=== PATIENT | female | born 1965 | race Caucasian/White ===

== ENCOUNTER 2017-11-16 13:48 | Emergency (ER) | payer BC, SELFPAY ==
[2017-11-16 13:48] VITALS: BP 164/76; PULSE 97; RESP 18; TEMP 37.4; O2SAT 95; BMI 44.2
--- NOTE | 2017-11-16 14:22 | CT_ITS ---
STUDY: CT ABDOMEN AND PELVIS WITHOUT CONTRAST REASON FOR EXAM: Female, 52 years old. Lower abdominal pain. Nausea. RADIATION DOSAGE (If Supplied By Facility): CTDIvol = ( 23.93 ) mGy, DLP = ( 1249.64 ) mGycm TECHNIQUE: Transaxial images were obtained from the dome of the diaphragm to the symphysis pubis without oral contrast, and without intravenous contrast. Sagittal and coronal images were reconstructed. Individualized dose optimization techniques were used for this CT. COMPARISON: None. FINDINGS: The visualized lung bases are unremarkable. The visualized portions of the heart are within normal limits. There is decreased attenuation of the liver consistent with steatosis. There are surgical clips in the gallbladder fossa consistent with a prior cholecystectomy. There are multiple benign calcified granulomata of the spleen. Normal pancreas. There is a small, circumscribed, smooth, low attenuation left adrenal mass, consistent with an adrenal adenoma. This measures 1.6 cm. Normal right adrenal gland. Normal right kidney. Normal left kidney. Normal visualized stomach. Normal small intestine. There is diverticulosis, with thickening of the colon wall, and pericolonic inflammation changes consistent with acute diverticulitis. Increased markings are seen in the surrounding sigmoid fat. 2 small air collections are seen within the inflammatory process. The appendix is visualized and appears normal. Normal abdominal aorta. Normal inferior vena cava. Normal retroperitoneum. Normal urinary bladder. There is absence of the uterus consistent with a prior hysterectomy. Minimal amount of free fluid is seen in the cul-de-sac. Normal abdominal wall. Normal osseous structures. CT/Abdomen/Pelvis without Cont IMPRESSION: Findings in keeping with acute sigmoid diverticulitis with a localized inflammatory response in the sigmoid mesentery. 2 small air collections are seen contained within the inflammatory process. Electronically Signed: Toni Khan MD at 15:34 EDT Tel [phone], Service support ,
--- NOTE | 2017-11-16 14:25 | ED.DCSUM_ITS ---
- ER Visit Summary Date of Service: 11/16/17 Chief Complaint: Abdominal pain History of Present Illness: The patient is a 52 F with history of diverticulitis who presents for abdominal pain since last night. 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 It is continuous and sharp, diffuse in nature. Worse with movement and mildly improved with gentle rubbing of the abdomen. Patient has associated nausea and multiple episodes of small quantities of mucus he stool. No formed stool or blood per rectum. No urinary symptoms. Patient has had a fever up to 101.9 at home. 3 of cholecystectomy and hysterectomy. Physical Examination: Vital signs: afebrile, hemodynamically stable, no hypoxia on room air General: well nourished, well developed, in no distress appears uncomfortable Skin: warm, dry, edematous rash on right medial arm over the elbow joint with 2 ovoid scabs, no pallor HEENT: normocephalic and atraumatic; PERRL, EOMI, moist mucous membranes Cardiovascular: Tachycardic rate and rhythm without murmurs, no peripheral edema , 2+ pulses all distal extremities Respiratory: No increased work of breathing, lungs are clear to auscultation bilaterally, no rales, rhonchi or wheezing Abdominal: Abdomen is soft, diffusely tender to light palpation with normoactive bowel sounds, no guarding or rebound, no masses MSK: Moves all extremities, no deformities, normal strength Neuro: Awake and alert, oriented ?4. No facial droop, sensation and motor function intact and symmetric Test Results: Abnormal Lab Results 11/16/17 11/16/17 11/16/17 14:30 14:30 14:30 WBC 19.8 H RBC 4.99 Hgb 15.1 H Hct 44.9 MCV 90.0 MCH 30.3 MCHC 33.6 RDW 13.5 RDW Differential 44.5 H Plt Count 214 MPV 11.0 Immature Gran % (Auto) 0.300 Neut % (Auto) 87.2 H Lymph % (Auto) 6.8 L [place] % (Auto) 5.4 Eos % (Auto) 0.2 Baso % (Auto) 0.1 Absolute Neuts (auto) 17.3 H Absolute Lymphs (auto) 1.34 Total Counted Not Reportable Sodium 132 L Potassium 3.8 Chloride 99 Carbon Dioxide 26.0 Anion Gap 7 BUN 9 Creatinine 0.99 Estim Creat Clear Calc 56.24 Est GFR (MDRD) Af Amer 77 Est GFR (MDRD) Non-Af 63 BUN/Creatinine Ratio 9.1 L Glucose 196 H Lactic Acid 1.2 Calcium 8.4 L Total Bilirubin 2.30 H AST 90 H ALT 99 H Alkaline Phosphatase 65 Total Protein 7.3 Albumin 3.2 Globulin 4.1 Albumin/Globulin Ratio 0.8 L Lipase 78 Urine Color Urine Clarity Urine pH Ur Specific [place] Urine Protein Urine Glucose (UA) Urine Ketones Urine Occult Blood Urine Nitrite Urine Bilirubin Urine Urobilinogen Ur Leukocyte Esterase Urine RBC Urine WBC Ur Squamous Epith Cells Urine Bacteria Urine Mucus 11/16/17 15:15 WBC RBC Hgb Hct MCV MCH MCHC RDW RDW Differential Plt Count MPV Immature Gran % (Auto) Neut % (Auto) Lymph % (Auto) [place] % (Auto) Eos % (Auto) Baso % (Auto) Absolute Neuts (auto) Absolute Lymphs (auto) Total Counted Sodium Potassium Chloride Carbon Dioxide Anion Gap BUN Creatinine Estim Creat Clear Calc Est GFR (MDRD) Af Amer Est GFR (MDRD) Non-Af BUN/Creatinine Ratio Glucose Lactic Acid Calcium Total Bilirubin AST ALT Alkaline Phosphatase Total Protein Albumin Globulin Albumin/Globulin Ratio Lipase Urine Color Yellow Urine Clarity Clear Urine pH 6.0 Ur Specific [place] 1.010 Urine Protein Negative Urine Glucose (UA) Normal Urine Ketones 5 H Urine Occult Blood 25 H Urine Nitrite Negative Urine Bilirubin 1 H Urine Urobilinogen 1 H Ur Leukocyte Esterase 25 H Urine RBC 0 SEEN Urine WBC 0-5 SEEN Ur Squamous Epith Cells 0-5 SEEN Urine Bacteria RARE Urine Mucus 0 SEEN Clinical Impression(s) from Imaging Studies Abdomen/Pelvis CT 11/16/17 14:22 IMPRESSION: Findings in keeping with acute sigmoid diverticulitis with a localized inflammatory response in the sigmoid mesentery. 2 small air collections are seen contained within the inflammatory process. Electronically Signed: Toni Khan MD at 15:34 EDT Tel [phone], Service support , Emergency Department Course and Treatment: Patient was given IV fluids, Zofran and morphine for symptomatic control. Labs showed leukocytosis, normal lactate , and mild transaminitis. CT scan was performed that showed sigmoid diverticulitis without any abscess collection or perforation noted. Patient has a history of diverticulitis and felt comfortable with outpatient therapy. She was placed on Cipro and metronidazole, with zofran and small prescription of [place] to help with symptomatic relief. Return precautions given. Patient was discharged home. Treatment Plan: [] Disposition: [] Impression: Acute sigmoid diverticulitis This note was generated with [employer] dictation software. It may contain incorrect words, spelling, and punctuation that were not noted in review of the chart prior to signing ED Disposition - Plan for ED Patient: Disposition: Home or Assisted Living Chief Complaint: Abd Pain Instructions: ED Diverticulitis Prescriptions: Ondansetron [Zofran Odt] 4 mg PO Q8H PRN PRN #20 tab PRN Reason: Nausea Hydrocodone/Acetaminophen [[place] 5-325 Tablet] 1 ea PO 4X/DAY PRN PRN 5 Days # 15 tab PRN Reason: Pain Metronidazole [Flagyl] 500 mg PO Q8H #21 tab Ciprofloxacin [Cipro] 500 mg PO BID #14 tab Referrals: Demarcus Vasques DO [COURTESY STAFF PHYSICIAN] - 3-5 Days if not improving Additional Instructions: Call your antibiotics for the full 7 days, even if you feel better before they are complete. You may use Zofran for nausea, especially if the medications upset your stomach. Use the [place] for severe pain. If you are unable to tolerate the antibiotics at home, have any worsening of your condition after 2 days of antibiotics, or had any concerns at all, return to the emergency department for another evaluation immediately.
[2017-11-16] MEDS: 0.9% Normal Saline 1,000 ML 1000 ML IV (14:33)
[2017-11-16] MEDS: Ondansetron 4 MG/2 ML Vial IV (14:38)
[2017-11-16] MEDS: Morphine 4 MG/ML Syringe IV (14:38)
[2017-11-16 14:40] VITALS: BP 156/83; PULSE 90
[2017-11-16 14:46] LABS: Absolute Lymphocyte Count 1.34 X10^3/ul (0.83-4.51); Absolute Neutrophil Count 17.3 X10^3/uL (2.0-7.7); Basophil# 0.01 X10^3/uL; Basophil% 0.1 % (0-1); Eosinophil# 0.03 X10^3/uL; Eosinophils% 0.2 % (0-5); Hematocrit 44.9 % (37-47); Hemoglobin 15.1 g/dl (12.0-15.0); Lymphocyte # 1.34 X10^3/ul (4.0); Lymphocyte % 6.8 % (19-41); Mean Corp Hgb Conc 33.6 g/gl (32-36); Mean Corpuscular Hgb 30.3 pg (27.0-32.0); Monocyte# 1.07 X10^3/uL; Monocyte% 5.4 % (0-10); Neutrophil # 17.26 X10^3/uL (2.7-7.7); Neutrophil % 87.2 % (47-70); POSITIVE COUNT NO; POSITIVE DIFFERENTIAL NO; POSITIVE MORPHOLOGY NO; Platelet Count 214 K/mm3 (150-450); RBC Distribution Width CV 13.5 % (11.6-14.6); RBC Distribution Width SD 44.5 fl (35.1-43.9); Red Blood Count 4.99 M/mm3 (4.2-5.4); White Blood Count 19.8 K/mm3 (4.4-11.0)
[2017-11-16 15:05] LABS: Lactic Acid 1.2 mmol/L (0.4-2.0)
[2017-11-16 15:06] LABS: ALB/GLOB Ratio 0.8 RATIO (0.9-2.4); AST(SGOT) 90 U/L (15-37); Alanine Aminotransfer ALT/SGPT 99 U/L (13-56); Albumin, Serum 3.2 g/dL (3.2-5.0); Alkaline Phosphatase 65 U/L (45-117); Anion Gap 7 (5-15); BUN 9 mg/dL (7-18); BUN/Creat Ratio 9.1 RATIO (10-20); Calcium,Total 8.4 mg/dL (8.5-10.1); Chloride 99 mmol/L (98-107); Creatinine, Serum 0.99 mg/dL (0.55-1.02); EST Glomerular Filtration Rate 63 mL/min (>60); Est Glom Filt Rate - Afr Amer 77 mL/min (>60); Estimated Creatinine Clearance 56.24 ml/min; Globulin 4.1 g/dL (2.2-4.2); Glucose 196 mg/dL (74-106); Lipase 78 U/L (73-393); Potassium 3.8 mmol/L (3.5-5.1); Protein, Total 7.3 g/dL (6.4-8.2); Sodium Level 132 mmol/L (136-145)
[2017-11-16 15:26] LABS: Mucous, Urine 0 SEEN /hpf (<or=2+); Red Blood Cells-Urine 0 SEEN /hpf (0-5)
[2017-11-16 15:41] LABS: Color, Urine Yellow (Yellow); Glucose, Dipstick Normal (Normal); Ketone-Dipstick 5 mg/dl (Negative); Leukocyte Esterase-Dipstick 25 /ul (Negative); Nitrite-Dipstick Negative (Negative); Occult Blood-Urine 25 /ul (Negative); Protein-Dipstick Negative (Negative); Urine Clarity Clear (Clear); Urine Urobilinogen 1 mg/dl (Normal)
[2017-11-16 15:56] LABS: Urine Bilirubin Dipstick 1 mg/dL (Negative)
[2017-11-16 15:59] LABS: Bacteria RARE /hpf (None Seen); Squamous Epithelial Cells - UA 0-5 SEEN /hpf (5-10); White Blood Cells 0-5 SEEN /hpf (0-5)
--- NOTE | 2017-11-16 16:19 | DCINST.ED_ITS ---
ED Disposition - Plan for ED Patient: Disposition: Home or Assisted Living Chief Complaint: Abd Pain Instructions: ED Diverticulitis Prescriptions: Ondansetron [Zofran Odt] 4 mg PO Q8H PRN PRN #20 tab PRN Reason: Nausea Hydrocodone/Acetaminophen [[place] 5-325 Tablet] 1 ea PO 4X/DAY PRN PRN 5 Days # 15 tab PRN Reason: Pain Metronidazole [Flagyl] 500 mg PO Q8H #21 tab Ciprofloxacin [Cipro] 500 mg PO BID #14 tab Referrals: Demarcus Vasques DO [COURTESY STAFF PHYSICIAN] - 3-5 Days if not improving Additional Instructions: Call your antibiotics for the full 7 days, even if you feel better before they are complete. You may use Zofran for nausea, especially if the medications upset your stomach. Use the [place] for severe pain. If you are unable to tolerate the antibiotics at home, have any worsening of your condition after 2 days of antibiotics, or had any concerns at all, return to the emergency department for another evaluation immediately.
[2017-11-16 16:30] VITALS: BP 137/64; PULSE 84; RESP 18; O2SAT 94
[2017-11-16] MEDS: HYDROcodone Bitartrate/Apap 5/325 Tablet PO (16:32)
== END 2017-11-16 16:38 | disposition home or self-care (01) ==
PROVIDERS: Emergency Provider Emergency Medicine
DX: K57.32 Diverticulitis of large intestine without perforation or abscess without bleeding (principal); Z90.49 Acquired absence of other specified parts of digestive tract; Z90.710 Acquired absence of both cervix and uterus; R21 Rash and other nonspecific skin eruption; E66.9 Obesity, unspecified; Z72.0 Tobacco use
CPT/HCPCS: 74176; 80053; 81001; 83605; 83690; 85025; 87086; 87088; 96361; 96374; 96375; 99285; J7030; A4216; J2405

== ENCOUNTER → 2019-08-23 10:36 | Outpatient (CLI) | payer SELFPAY ==
[2019-08-23 10:35] VITALS: BMI 44.2
--- NOTE | 2019-08-23 10:38 | RAD_ITS ---
STUDY: X-RAY - SACRUM/COCCYX REASON FOR EXAM: Female, 53 years old. Fell, pain TECHNIQUE: 3 view(s) of the sacrum and coccyx were obtained. COMPARISON: None. FINDINGS: There is degenerative arthrosis of the bilateral sacroiliac joints. Normal visualized sacral ala and fused sacral bodies. Normal sacrococcygeal junction with a normal angulation. Anterior subluxation of the distal coccygeal segment. The presacral soft tissue structures are unremarkable. RAD/Sacrum-Coccyx min 2 Views IMPRESSION: Degenerative changes. Anterior subluxation of the distal coccygeal segment. Electronically Signed: Toni Khan, at 11:39 EST , Service support ,
== END ==
PROVIDERS: Referring Provider Physician Assistant; Visit Provider Physician Assistant
DX: R52 Pain, unspecified (principal); W19.XXXA Unspecified fall, initial encounter
CPT/HCPCS: 72220

== ENCOUNTER → 2020-12-22 14:44 | Outpatient (CLI) | payer MEDICAID, SELFPAY ==
[2019-08-23 10:35] VITALS: BMI 44.2
[2020-12-22 15:54] LABS: AST(SGOT) 17 U/L (15-37); Alanine Aminotransfer ALT/SGPT 41 U/L (13-56); Cholesterol 134 mg/dL (200); High Density Lipoprotein 49 mg/dL; Triglycerides 94 mg/dL; Very Low Density Lipoprotein 19 mg/dL (5-40)
== END ==
PROVIDERS: PCP Preventive Medicine Occupational Medicine; Referring Provider Preventive Medicine Occupational Medicine; Visit Provider Preventive Medicine Occupational Medicine
DX: E78.5 Hyperlipidemia, unspecified (principal)
CPT/HCPCS: 36415; 80061; 84450; 84460

== ENCOUNTER 2021-01-25 02:38 | Emergency (ER) | payer MEDICAID, SELFPAY ==
[2019-08-23 10:35] VITALS: BMI 44.2
[2021-01-25 02:40] VITALS: BP 138/72; PULSE 74; RESP 16; TEMP 36.6; O2SAT 99; BMI 42.0
[2021-01-25 02:44] VITALS: O2SAT 99
--- NOTE | 2021-01-25 02:44 | RAD_ITS ---
STUDY: X-RAY CHEST REASON FOR EXAM: Female, 55 years old. chest pain TECHNIQUE: Single AP portable view of the chest. COMPARISON: None. FINDINGS: The lungs are clear and expanded. There is no demonstrated pleural abnormality. Normal size heart. Normal mediastinum and cristina. Normal visualized pulmonary arteries. Normal visualized aortic arch and descending thoracic aorta. Normal visualized thoracic spine. There is degenerative osteoarthritis of the bilateral shoulders. There is no demonstrated abnormality of the visualized soft tissue structures of the upper abdomen. RAD/Chest 1 View (Portable) IMPRESSION: No acute cardiopulmonary disease. Electronically Signed: Oxana Lambert MD at 3:19 EDT , Service support ,
--- NOTE | 2021-01-25 02:44 | EKG12_ITS ---
Test Reason : CHEST PAIN Blood Pressure : / mmHG Vent. Rate : 071 BPM Atrial Rate : 071 BPM P-R Int : 164 ms QRS Dur : 092 ms QT Int : 418 ms P-R-T Axes : -11 014 184 degrees QTc Int : 454 ms Normal sinus rhythm ST & T wave abnormality, consider inferior ischemia ST & T wave abnormality, consider anterolateral ischemia Abnormal ECG Confirmed by HUMBLE ZHAO, NIURKA ([id number]), editorial project manager RUKHSANA CORNELIUS ([id number]) on 01/26/2021 2:26:24 PM Referred By: AVRIL Confirmed By:NIURKA KATE MD
--- NOTE | 2021-01-25 02:45 | EDS_ITS ---
HPI History of Present Illness Chief Complaint: Palpitations Informant: patient Onset/Context/Timing Onset: Today Activity at onset: sudden and sleep Timing: Intermittent Current Severity: Gone Maximum Severity: Mild Worsened By: Nothing Relieved By: Nothing Narrative Narrative: Middle-aged female history of prior A. fib currently not on blood thinners. Had a prior cardiac catheterization in the last 4 months and states that she had 20% blockage. No stents. She is currently on no blood thinner. She does have a history also of diabetes. States she has been feeling well. Tonight she woke up about 2 AM from sleep with palpitations. Really no significant chest pain. No shortness of breath. No diaphoresis. No nausea. Prior Similar Symptoms: Yes Recent Illness/Hospitalization: No CVD Risk Factors: Positive for Diabetes, Hypercholesterolemia and Smoking PE Risk Factors: Negative for Recent Travel/Surgery, Recent Immobilization, Prior DVT or PE, Cancer and OCP + Smoking + >/=35 TAD Risk Factors: Negative for Marfan's Syndrome [facility] Medical History (Updated 01/25/21 @ 03:[address] Live Zamarripa MD) Asthma Cancer Diverticulitis Hypertension Home Medications albuterol sulfate 1 puff INHALATION Q6H PRN PRN 01/25/21 [History Last Taken Unknown] atorvastatin 20 mg PO DAILY 01/25/21 [History Last Taken Unknown] diltiazem HCl 240 mg PO DAILY 01/25/21 [History Last Taken Unknown] dulaglutide [Trulicity] 1.5 mg SUBCUT QWEEK 01/25/21 [History Last Taken Unknown] metformin 200 mg PO DAILY 01/25/21 [History Last Taken Unknown] Allergy/AdvReac Type Severity Reaction Status Date / Time No Known Allergies Allergy Verified 08/23/19 10:51 Surgical History History of cataract surgery History of cholecystectomy History of hysterectomy Social History Smoking Status: Current every day smoker tobacco type: cigarettes alcohol intake: current alcohol intake frequency: a few times a week ROS ROS ED ROS Narrative Denies recent illness. Review of Systems ROS Unobtainable: Denies due to encephalopathy Constitutional Constitutional ED: Denies chills or fever(s) Eyes Eyes: Denies none ENT ENT ED: Denies ear pain or sore throat Cardiovascular Cardiovascular: Reports as per HPI, palpitations and racing heartbeat; Denies chest pain Respiratory/Chest Respiratory/Chest: Denies cough or dyspnea Gastrointestinal Gastrointestinal: Denies abdominal pain, diarrhea, nausea or vomiting Genitourinary Genitourinary ED: Denies dysuria or hematuria Musculoskeletal Musculoskeletal: Denies arthralgias or myalgias Integumentary Denies rash Neurologic Neurologic: Denies headache(s) Psychiatric Psychiatric: Denies depression Endocrine Endocrinology: Denies polyuria Hematologic/Lymphatic Hematologic/Lymphatic: Denies easy bruising Allergic/Immunologic Allergic/Immunologic ED: Denies urticaria EXAM Physical Exam Narrative Exam Narrative: Middle-aged female no acute distress. Current heart rate is in the 70s. No complaints. HEENT exam unremarkable. Neck nontender. No lymphadenopathy. No thyromegaly. Lungs clear to auscultation bilaterally. Heart regular rate and rhythm no murmur rate about 74. Abdomen soft nontender normal bowel sounds no peritoneal signs. Patient moving all 4 extremities. Calves nontender without edema or cords. Equal symmetrical radial pulses. 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 Neurologically awake and alert with no focal motor deficits. Currently patient is symptom-free. Const Vital Signs: 01/25/21 02:40 01/25/21 02:42 01/25/21 02:44 Temperature 98 F Temperature Source Temporal Pulse Rate 74 Respiratory Rate 16 Respiratory Pattern Normal Blood Pressure 138/72 H Blood Pressure Mean 94 Pulse Ox 99 99 Oxygen Delivery Method Room Air Room Air Positive well nourished and well developed General Appearance ED: well developed and NAD HEENT Reports moist mucous membranes normocephalic and atraumatic; Negative for trauma or tenderness Eyes PERRL and EOMs intact bilaterally General Eye ED: Negative for pale conjunctiva Neck no lymphadenopathy, supple and no JVD General: Negative for tenderness Chest Wall inspection of chest normal and palpation of chest normal Chest: Negative for tenderness Resp normal respiratory effort and clear to auscultation bilaterally Effort and Inspection: respiratory distress Auscultation: Negative for rales, rhonchi or wheezes Cardio regular rate, regular rhythm, S1 normal heart sound, S2 normal heart sound and no murmurs Rate: Negative for bradycardia or tachycardic GI normal to inspection, nondistended, normoactive bowel sounds, soft to palpation, non-tender, non-distended and no masses; Negative for hepatosplenomegaly Auscultation: Negative for hyperactive bowel sounds Back/Spine no CVA tenderness General Back: Negative for CVA tenderness Extremity normal to inspection General Extremety ED: Negative for edema, pulses abnormal or tenderness General Extremity: Negative for edema or pulses abnormal Neuro oriented x3 and CN's II-XII intact bilaterally Sensorium / Orientation: awake, alert, oriented to person, oriented to place and oriented to time Motor Exam: strength 5/5 throughout Psych mental status grossly normal Attitude: No agitated Mood & Affect: Negative for depressed, anxious or tearful Skin no rashes or lesions noted and no wounds Heart Score History: Slightly/Non-Suspicious Age: >45 - <65 years Risk Factors: 1 or 2 Risk Factors Troponin: </= Normal Limit Score: 2 MDM MDM MDM Narrative Medical decision making narrative: Middle-aged female awoke tonight with accelerated heart rate and palpitations. She had a recent heart cath showing minimal CAD. No stents were needed. She also has a history of A. fib. Currently she has a normal heart rate in the 70s. Her exam is benign. She has no symptoms. She will undergo cardiac a work-up. Repeat exam at 3:35 AM patient is doing well. Resting comfortably. Heart rate in the 60s. No complaints. I discussed all the test results with both her and her daughter. They are comfortable with her being discharged to home. Lab Data Attestation: I reviewed the patient's lab results. Lab results narrative: CBC showed an elevated white count 18.4 previously was 19.8. Hemoglobin 15. No bands. Chemistries unremarkable gap at 9. Creatinine of 1. Glucose of 149. Troponin 8. Urinalysis normal no signs of infection. Labs: Laboratory Results - last 24 hr 01/25/21 01/25/21 01/25/21 02:46 02:46 03:31 WBC 18.4 H RBC 5.18 Hgb 15.0 Hct 45.4 MCV 87.6 MCH 29.0 MCHC 33.0 RDW Std Deviation 40.7 RDW Coeff of [place] 12.7 Plt Count 342 MPV 10.7 Immature Gran % (Auto) 0.500 Neut % (Auto) 66.2 Lymph % (Auto) 25.9 [place] % (Auto) 4.6 Eos % (Auto) 2.4 Baso % (Auto) 0.4 Absolute Neuts (auto) 12.2 H Absolute Lymphs (auto) 4.77 H Nucleated RBC % 0 Sodium 138 Potassium 3.8 Chloride 103 Carbon Dioxide 26.0 Anion Gap 9 BUN 18 Creatinine 1.07 H Estim Creat Clear Calc 50.30 Est GFR (MDRD) Af Amer 69 Est GFR (MDRD) Non-Af 57 L BUN/Creatinine Ratio 16.8 Glucose 149 H Calcium 8.9 Troponin I High Sens 8.5 Urine Color Yellow Urine Clarity Sl. Cloudy Urine pH 5.0 Ur Specific [place] 1.030 Urine Protein 30 H Urine Glucose (UA) Normal Urine Ketones 15 H Urine Occult Blood 10 H Urine Nitrite Negative Urine Bilirubin 3 H Urine Urobilinogen 4 H Ur Leukocyte Esterase 25 H Urine RBC 0-5 SEEN Urine WBC 0-5 SEEN Ur Squamous Epith Cells 0-5 SEEN Urine Bacteria RARE Urine Mucus 0 SEEN Radiography Chest X-Ray - ED: 1 View, Read by ED Physician, Heart, Lungs, Mediastinum, Bony Structures, No Acute Disease and Chronic Changes Diagnostic Testing: Radiology Impression Chest X-Ray 01/25/21 02:44 IMPRESSION: No acute cardiopulmonary disease. Electronically Signed: Oxana Lambert MD at 3:19 EDT , Service support , Portable chest x-ray 1 view interpreted by myself shows no acute abnormality. Normal cardiac silhouette mediastinum. No infiltrates. No failure. Rhythm Strip Rhythm Strip: Sinus Rhythm Rate: 71 Ectopy: None EKG Initial EKG: Attestation: I personally reviewed and interpreted this EKG as follows: Interpretation: Sinus Rhythm and No Acute Injury Pattern Comments: Normal sinus rhythm rate of 71. Patient has inverted T waves in V3 through V6. No prior EKGs in our system. Prior EKG tracings: not available for review Discharge Plan Triage Chief Complaint: Palpitations ED Provider: Live Zamarripa Dx/Rx/DC Orders Clinical Impression: Heart palpitations Instructions: ED Palpitations Prescriptions: No Action atorvastatin 20 mg tablet 20 mg PO DAILY RF: 0 diltiazem HCl 240 mg capsule,extended release 24hr 240 mg PO DAILY RF: 0 albuterol sulfate 90 mcg/actuation HFA aerosol inhaler 1 puff INHALATION Q6H PRN PRN (Reason: Wheezing) RF: 0 metformin 500 mg tablet extended release 24 hr 200 mg PO DAILY RF: 0 Trulicity 1.5 mg/0.5 mL pen injector 1.5 mg SUBCUT QWEEK RF: 0 Primary Care Provider: Demarcus Vasques Referrals: Demarcus Vasques DO [Primary Care Provider] - 3-5 Days if not improving Activity Restrictions/Additional Instructions: Return if feeling worse. My best guess is that you had A. fib with rapid heart rate tonight and then it resolved on its own. Your lab work and chest x-ray look good. There is no signs of a heart attack on your blood work. Follow-up with your doctor if not feeling better. Return to emergency department if you are feeling worse. Disposition Disposition: Home, Self Care
[2021-01-25 02:53] LABS: Absolute Lymphocyte Count 4.77 X10^3/uL (0.83-4.51); Absolute Neutrophil Count 12.2 X10^3/uL (2.0-7.7); Basophil# 0.07 X10^3/uL; Basophil% 0.4 % (0-1); Eosinophil# 0.45 X10^3/uL; Eosinophils% 2.4 % (0-5); Hematocrit 45.4 % (37-47); Lymphocyte # 4.77 X10^3/ul (0.83-4.51); Lymphocyte % 25.9 % (19-41); Mean Corpuscular Volume 87.6 fL (81-99); Mean Platelet Vol. 10.7 fl (6.2-12.0); Monocyte# 0.85 X10^3/uL; Monocyte% 4.6 % (0-10); NRBC Flagged by Analyzer 0 % (0-5); Neutrophil % 66.2 % (47-70); Platelet Count 342 K/mm3 (150-450); RBC Distribution Width CV 12.7 % (11.6-14.6); RBC Distribution Width SD 40.7 fl (35.1-43.9); Red Blood Count 5.18 M/mm3 (4.2-5.4); White Blood Count 18.4 K/mm3 (4.4-11.0)
[2021-01-25 03:10] LABS: Anion Gap 9 (5-15); BUN 18 mg/dL (7-18); BUN/Creat Ratio 16.8 RATIO (10-20); Calcium,Total 8.9 mg/dL (8.5-10.1); Chloride 103 mmol/L (98-107); Creatinine, Serum 1.07 mg/dL (0.55-1.02); EST Glomerular Filtration Rate 57 mL/min (>60); Est Glom Filt Rate - Afr Amer 69 mL/min (>60); Glucose 149 mg/dL (74-106); Potassium 3.8 mmol/L (3.5-5.1); Sodium Level 138 mmol/L (136-145); Troponin-I HS 8.5 pg/mL (3.0-53.7)
[2021-01-25 03:41] LABS: Mucous, Urine 0 SEEN /hpf (<or=2+)
[2021-01-25 03:42] LABS: Color, Urine Yellow (Yellow); Glucose, Dipstick Normal (Normal); Ketone-Dipstick 15 mg/dl (Negative); Leukocyte Esterase-Dipstick 25 /ul (Negative); Nitrite-Dipstick Negative (Negative); Occult Blood-Urine 10 /ul (Negative); Protein-Dipstick 30 mg/dl (Negative); Urine Clarity Sl. Cloudy (Clear); Urine Urobilinogen 4 mg/dl (Normal)
[2021-01-25 03:45] LABS: Urine Bilirubin Dipstick 3 mg/dL (Negative)
[2021-01-25 03:48] LABS: Bacteria RARE /hpf (None Seen); Red Blood Cells-Urine 0-5 SEEN /hpf (0-5); Squamous Epithelial Cells - UA 0-5 SEEN /hpf (5-10); White Blood Cells 0-5 SEEN /hpf (0-5)
[2021-01-25 04:24] VITALS: BP 108/77; PULSE 72; RESP 16; O2SAT 96
== END 2021-01-25 04:25 | disposition home or self-care (01) ==
PROVIDERS: Emergency Provider Emergency Medicine; PCP Preventive Medicine Occupational Medicine
DX: R00.2 Palpitations (principal); I10 Essential (primary) hypertension; J45.909 Unspecified asthma, uncomplicated; F17.210 Nicotine dependence, cigarettes, uncomplicated; E11.9 Type 2 diabetes mellitus without complications; E78.00 Pure hypercholesterolemia, unspecified; I48.91 Unspecified atrial fibrillation; Z79.84 Long term (current) use of oral hypoglycemic drugs; Z79.899 Other long term (current) drug therapy
CPT/HCPCS: 71045; 80048; 81001; 84484; 85025; 93005; 99284; A4216

== ENCOUNTER 2021-02-04 06:38 | Emergency (ER) | payer MEDICAID, SELFPAY ==
[2021-02-04 06:38] VITALS: BP 160/96; PULSE 139; RESP 18; TEMP 36.6; O2SAT 98; BMI 43.0
--- NOTE | 2021-02-04 06:42 | RAD_ITS ---
STUDY: X-RAY CHEST REASON FOR EXAM: Female, 55 years old. Palpitations TECHNIQUE: Single AP portable view of the chest. COMPARISON: None. FINDINGS: EKG leads project over the chest. The lungs are clear and expanded. There is no demonstrated pleural abnormality. Normal size heart. Normal mediastinum and cristina. Normal visualized pulmonary arteries. Normal visualized aortic arch and descending thoracic aorta. Normal visualized thoracic spine. Normal visualized ribs, clavicles, and shoulders. There is no demonstrated abnormality of the visualized soft tissue structures of the upper abdomen. RAD/Chest 1 View (Portable) IMPRESSION: Normal x-ray examination of the chest. Electronically Signed: Han Powell MD ([place]) at 7:19 EDT , Service support ,
--- NOTE | 2021-02-04 06:42 | EKG12_ITS ---
Test Reason : CP Blood Pressure : / mmHG Vent. Rate : 141 BPM Atrial Rate : 141 BPM P-R Int : 206 ms QRS Dur : 090 ms QT Int : 290 ms P-R-T Axes : 014 017 190 degrees QTc Int : 444 ms Sinus tachycardia Marked ST abnbormality possibly, or rate related Abnormal ECG Confirmed by CHRIS ZHAO, TOMY ([id number]), manuscript editor RUKHSANA CORNELIUS ([id number]) on 02/09/2021 8:55:22 AM Referred By: TRISTAN Confirmed By:STEPHON PEREZ MD
[2021-02-04] MEDS: 0.9% Normal Saline 1,000 ML 1000 ML IV (06:49)
[2021-02-04 06:50] LABS: Absolute Lymphocyte Count 4.46 X10^3/uL (0.83-4.51); Absolute Neutrophil Count 9.9 X10^3/uL (2.0-7.7); Basophil# 0.05 X10^3/uL; Basophil% 0.3 % (0-1); Eosinophils% 2.5 % (0-5); Hematocrit 47.9 % (37-47); Hemoglobin 15.8 g/dL (12.0-15.0); Lymphocyte # 4.46 X10^3/ul (0.83-4.51); Lymphocyte % 28.2 % (19-41); Mean Corpuscular Hgb 28.9 pg (27.0-32.0); Mean Corpuscular Volume 87.6 fL (81-99); Mean Platelet Vol. 10.7 fl (6.2-12.0); Monocyte# 0.89 X10^3/uL; Monocyte% 5.6 % (0-10); NRBC Flagged by Analyzer 0 % (0-5); Neutrophil # 9.94 X10^3/uL (2.7-7.7); Platelet Count 342 K/mm3 (150-450); RBC Distribution Width CV 12.8 % (11.6-14.6); RBC Distribution Width SD 40.9 fl (35.1-43.9); Red Blood Count 5.47 M/mm3 (4.2-5.4); White Blood Count 15.8 K/mm3 (4.4-11.0)
--- NOTE | 2021-02-04 06:54 | EDS_ITS ---
HPI <Dr. Merrick Vivas DO - Last Filed: 02/04/21 22:39> History of Present Illness Chief Complaint: Palpitations Informant: patient Narrative Narrative: Patient is a 55-year-old female who presents to the emergency department for heart palpitations and chest pressure. She states that this started 2 hours prior to arrival in the ED. She has had this before in the past. Last time she was seen in the emergency department but her symptoms resolved prior to coming in. Her symptoms are persistent this time. No known aggravating or relieving factors. She states she has had a heart cath within the past year which showed a 20% blockage they did not do any intervention. She denies any recent illness. No cough. No significant shortness of breath just chest tightness. She denies any leg swelling or calf pain. She does admit to a history of atrial fibrillation but not on any anticoagulation. [facility] <Dr. Merrick Vivas DO - Last Filed: 02/04/21 22:39> [facility] Medical History (Updated 02/04/21 @ 09:[address] Live Zamarripa MD) Afib Asthma Cancer Diabetes Diverticulitis Hypertension Home Medications albuterol sulfate 1 puff INHALATION Q6H PRN PRN 01/25/21 [History Last Taken Unknown] atorvastatin 20 mg PO DAILY 01/25/21 [History Last Taken Unknown] diltiazem HCl 240 mg PO DAILY 01/25/21 [History Last Taken Unknown] dulaglutide [Trulicity] 1.5 mg SUBCUT QWEEK 01/25/21 [History Last Taken Unknown] metformin 200 mg PO DAILY 01/25/21 [History Last Taken Unknown] Allergy/AdvReac Type Severity Reaction Status Date / Time No Known Allergies Allergy Verified 02/04/21 06:45 Surgical History History of cataract surgery History of cholecystectomy History of hysterectomy Social History Smoking Status: Current every day smoker tobacco type: cigarettes alcohol intake: current alcohol intake frequency: a few times a week ROS <Dr. Merrick Vivas DO - Last Filed: 02/04/21 22:39> ROS ED Constitutional Constitutional ED: Denies chills or fever(s) Eyes Eyes: Denies change in vision ENT ENT ED: Denies epistaxis or rhinorrhea Cardiovascular Cardiovascular: Reports chest pain, palpitations and racing heartbeat Respiratory/Chest Respiratory/Chest: Denies cough, dyspnea or dyspnea on exertion Gastrointestinal Gastrointestinal: Denies abdominal pain, diarrhea, nausea or vomiting Musculoskeletal Musculoskeletal: Denies back pain or neck pain Integumentary Denies rash Neurologic Neurologic: Denies dizziness, headache(s) or weakness EXAM <Dr. Merrick Vivas DO - Last Filed: 02/04/21 22:39> Physical Exam Const Vital Signs: 02/04/21 06:38 02/04/21 06:46 02/04/21 07:29 Temperature 97.8 F Temperature Source Oral Pulse Rate 139 H 130 H Respiratory Rate 18 12 Respiratory Effort Normal Non-Labored Blood Pressure 160/96 H 133/96 H Blood Pressure Mean 117 108 Blood Pressure Location Left Arm Pulse Ox 98 97 Oxygen Delivery Method Room Air 02/04/21 08:06 02/04/21 09:11 02/04/21 09:29 Temperature Temperature Source Pulse Rate 68 66 68 Respiratory Rate 13 13 15 Respiratory Effort Blood Pressure 127/72 H 136/75 H 135/75 H Blood Pressure Mean 90 95 Blood Pressure Location Pulse Ox 94 94 98 Oxygen Delivery Method Room Air Room Air 02/04/21 09:30 Temperature Temperature Source Pulse Rate 88 Respiratory Rate 15 Respiratory Effort Blood Pressure 136/75 H Blood Pressure Mean 95 Blood Pressure Location Left Arm Pulse Ox 98 Oxygen Delivery Method Positive well nourished and well developed General Appearance ED: well developed and NAD HEENT Reports normocephalic, head/scalp atraumatic and moist mucous membranes Eyes PERRL and EOMs intact bilaterally Neck supple Resp normal respiratory effort and clear to auscultation bilaterally Auscultation: Negative for rales, rhonchi or wheezes Cardio regular rate and no murmurs Rate: tachycardic GI normal to inspection, nondistended, normoactive bowel sounds and non-tender Palpation: soft; Negative for guarding or rebound tenderness present Extremity normal to inspection General Extremety ED: Negative for edema or tenderness General Extremity: Negative for edema Neuro no sensory deficits noted Sensorium / Orientation: alert Motor Exam: strength 5/5 throughout Psych mental status grossly normal Skin no rashes or lesions noted <Dr. Live Zamarripa MD - Last Filed: 02/04/21 09:23> Physical Exam Const Vital Signs: 02/04/21 06:38 02/04/21 06:46 02/04/21 07:29 Temperature 97.8 F Temperature Source Oral Pulse Rate 139 H 130 H Respiratory Rate 18 12 Respiratory Effort Normal Non-Labored Blood Pressure 160/96 H 133/96 H Blood Pressure Mean 117 108 Blood Pressure Location Left Arm Pulse Ox 98 97 Oxygen Delivery Method Room Air 02/04/21 08:06 02/04/21 09:11 02/04/21 09:29 Temperature Temperature Source Pulse Rate 68 66 68 Respiratory Rate 13 13 15 Respiratory Effort Blood Pressure 127/72 H 136/75 H 135/75 H Blood Pressure Mean 90 95 Blood Pressure Location Pulse Ox 94 94 98 Oxygen Delivery Method Room Air Room Air 02/04/21 09:30 Temperature Temperature Source Pulse Rate 88 Respiratory Rate 15 Respiratory Effort Blood Pressure 136/75 H Blood Pressure Mean 95 Blood Pressure Location Left Arm Pulse Ox 98 Oxygen Delivery Method MDM <Dr. Merrick Vivas, DO - Last Filed: 02/04/21 22:39> [facility] Narrative Medical decision making narrative: Patient presents to the emergency department for palpitations with chest tightness. Upon arrival to the ED she is tachycardic. EKG obtained which did show a ventricular rate of 141 bpm in a regular rhythm. There are ST depressions in the anterior lateral leads. aVR has some mild elevation. I did compare this to her previous EKG performed on January 252020 and she does have T wave inversions in the anterior lateral leads which is similar to the leads with the changes today. With her history of A. fib. Her rate is at 141 so we will treat this as an atrial flutter. We will give a dose of IV Cardizem. Basic lab work being obtained as well as chest x- ray. Lab Data Labs: Laboratory Results - last 24 hr 02/04/21 02/04/21 06:45 06:45 WBC 15.8 H RBC 5.47 H Hgb 15.8 H Hct 47.9 H MCV 87.6 MCH 28.9 MCHC 33.0 RDW Std Deviation 40.9 RDW Coeff of Chloe 12.8 Plt Count 342 MPV 10.7 Immature Gran % (Auto) 0.400 Neut % (Auto) 63.0 Lymph % (Auto) 28.2 Woodward % (Auto) 5.6 Eos % (Auto) 2.5 Baso % (Auto) 0.3 Absolute Neuts (auto) 9.9 H Absolute Lymphs (auto) 4.46 Nucleated RBC % 0 Sodium 137 Potassium 4.0 Chloride 103 Carbon Dioxide 27.0 Anion Gap 7 BUN 16 Creatinine 0.84 Estim Creat Clear Calc 64.07 Est GFR (MDRD) Af Amer 91 Est GFR (MDRD) Non-Af 75 BUN/Creatinine Ratio 18.9 Glucose 132 H Calcium 9.2 Magnesium 1.7 Troponin I High Sens 10.8 Radiography Chest X-Ray - ED: 1 View (Chest x-ray interpreted by myself. Clear lung kellogg bilaterally. No pleural effusions. Normal cardiac silhouette. Normal mediastinum. No acute cardiopulmonary abnormality.) Diagnostic Testing: Radiology Impression Chest X-Ray 02/04/21 06:42 IMPRESSION: Normal x-ray examination of the chest. Electronically Signed: Han Powell MD ([place]) at 7:19 EDT , Service support , <Dr. Live Zmaarripa MD - Last Filed: 02/04/21 09:23> MDM MDM Narrative Medical decision making narrative: Patient turned over to me from the overnight physician Dr. King Vivas. Patient's white count is elevated 15 previously it was higher. Hemoglobin 15. Electrolytes unremarkable gap of 7. Normal creatinine. Troponin normal at 10. Chest x-ray no acute abnormalities. Repeat exam patient is doing well at 9:20 AM. After Cardizem her heart rates in the 60s. She is doing well. She is without symptoms. She will follow up with her biologics specialist. Lab Data Attestation: I reviewed the patient's lab results. Lab results narrative: I reviewed all of patient's labs. Labs: Laboratory Results - last 24 hr 02/04/21 02/04/21 06:45 06:45 WBC 15.8 H RBC 5.47 H Hgb 15.8 H Hct 47.9 H MCV 87.6 MCH 28.9 MCHC 33.0 RDW Std Deviation 40.9 RDW Coeff of Chloe 12.8 Plt Count 342 MPV 10.7 Immature Gran % (Auto) 0.400 Neut % (Auto) 63.0 Lymph % (Auto) 28.2 Woodward % (Auto) 5.6 Eos % (Auto) 2.5 Baso % (Auto) 0.3 Absolute Neuts (auto) 9.9 H Absolute Lymphs (auto) 4.46 Nucleated RBC % 0 Sodium 137 Potassium 4.0 Chloride 103 Carbon Dioxide 27.0 Anion Gap 7 BUN 16 Creatinine 0.84 Estim Creat Clear Calc 64.07 Est GFR (MDRD) Af Amer 91 Est GFR (MDRD) Non-Af 75 BUN/Creatinine Ratio 18.9 Glucose 132 H Calcium 9.2 Magnesium 1.7 Troponin I High Sens 10.8 Radiography Chest X-Ray - ED: 1 View, Read by ED Physician, Normal, Heart, Lungs, Mediastinum, Bony Structures and No Acute Disease Diagnostic Testing: Radiology Impression Chest X-Ray 02/04/21 06:42 IMPRESSION: Normal x-ray examination of the chest. Electronically Signed: Han Powell MD ([place]) at 7:19 EDT , Service support , Rhythm Strip Rhythm Strip: A-fib Rate: 141 Ectopy: None EKG Initial EKG: Attestation: I personally reviewed and interpreted this EKG as follows: Interpretation: Atrial Fibrillation Comments: Atrial fib or flutter with rapid ventricular rate at [address] depression in leads V2 through V6 which is most likely rate dependent. No ST elevation. Prior EKG tracings: available for review Prior: Unchanged Discharge Plan Triage Chief Complaint: Palpitations ED Provider: Merrick Vivas Dx/Rx/DC Orders Clinical Impression: Atrial fibrillation with rapid ventricular response Instructions: ED AFIB Prescriptions: No Action atorvastatin 20 mg tablet 20 mg PO DAILY RF: 0 diltiazem HCl 240 mg capsule,extended release 24hr 240 mg PO DAILY RF: 0 albuterol sulfate 90 mcg/actuation HFA aerosol inhaler 1 puff INHALATION Q6H PRN PRN (Reason: Wheezing) RF: 0 metformin 500 mg tablet extended release 24 hr 200 mg PO DAILY RF: 0 Trulicity 1.5 mg/0.5 mL pen injector 1.5 mg SUBCUT QWEEK RF: 0 Primary Care Provider: Demarcus Vasques Referrals: Demarcus Vasques DO [Primary Care Provider] - Activity Restrictions/Additional Instructions: Continue current medications. Call follow-up with your biologics specialist as soon as possible. Disposition Disposition: Home, Self Care Discharge Date/Time: 02/04/21 09:32
[2021-02-04 07:07] LABS: Anion Gap 7 (5-15); BUN 16 mg/dL (7-18); BUN/Creat Ratio 18.9 RATIO (10-20); Calcium,Total 9.2 mg/dL (8.5-10.1); Chloride 103 mmol/L (98-107); Creatinine, Serum 0.84 mg/dL (0.55-1.02); EST Glomerular Filtration Rate 75 mL/min (>60); Est Glom Filt Rate - Afr Amer 91 mL/min (>60); Estimated Creatinine Clearance 64.07 ml/min; Glucose 132 mg/dL (74-106); Magnesium 1.7 mg/dL (1.6-2.6); Sodium Level 137 mmol/L (136-145); Troponin-I HS 10.8 pg/mL (3.0-53.7)
[2021-02-04] MEDS: dilTIAZem 25 MG/5 ML Vial 10 MG IV BOLUS (07:07)
[2021-02-04 07:29] VITALS: BP 133/96; PULSE 130; RESP 12; O2SAT 97
[2021-02-04 08:06] VITALS: BP 127/72; PULSE 68; RESP 13; O2SAT 94
[2021-02-04 09:11] VITALS: BP 136/75; PULSE 66; RESP 13; O2SAT 94
[2021-02-04 09:29] VITALS: BP 135/75; PULSE 68; RESP 15; O2SAT 98
[2021-02-04 09:30] VITALS: BP 136/75; PULSE 88; RESP 15; O2SAT 98
== END 2021-02-04 09:32 | disposition home or self-care (01) ==
PROVIDERS: Emergency Provider Emergency Medicine; PCP Preventive Medicine Occupational Medicine
DX: I48.91 Unspecified atrial fibrillation (principal); I10 Essential (primary) hypertension; E11.9 Type 2 diabetes mellitus without complications; J45.909 Unspecified asthma, uncomplicated; Z87.19 Personal history of other diseases of the digestive system; Z79.84 Long term (current) use of oral hypoglycemic drugs; Z79.899 Other long term (current) drug therapy; F17.210 Nicotine dependence, cigarettes, uncomplicated
CPT/HCPCS: 36415; 71045; 80048; 83735; 84484; 85025; 93005; 96361; 96365; 96366; 99284; J7030; A4216

== ENCOUNTER 2021-08-24 08:43 | Outpatient (RCR) | payer MEDICAID, SELFPAY ==
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
--- NOTE | 2021-08-28 09:40 | HP.OTFCE.D ---
FCE D/C Summary - Discharge FELIX MALHOTRA was seen for a one time visit for an FCE on 08/24/21 and is discharged.
== END 2021-08-24 19:00 | disposition home or self-care (01) ==
LOC: OT 08:43
PROVIDERS: PCP Preventive Medicine Occupational Medicine; Referring Provider Preventive Medicine Occupational Medicine; Visit Provider Preventive Medicine Occupational Medicine
DX: M51.16 Intervertebral disc disorders with radiculopathy, lumbar region (principal)
CPT/HCPCS: 97166; 97750

== ENCOUNTER 2021-09-23 12:15 | Emergency (ER) | payer MEDICAID, SELFPAY ==
[2021-09-23 12:16] VITALS: BP 184/82; PULSE 80; RESP 14; TEMP 36.4; O2SAT 98; BMI 42.7
--- NOTE | 2021-09-23 12:58 | EKG12_ITS ---
Test Reason : DIZZNIESS Blood Pressure : / mmHG Vent. Rate : 055 BPM Atrial Rate : 055 BPM P-R Int : 214 ms QRS Dur : 110 ms QT Int : 464 ms P-R-T Axes : -04 -01 157 degrees QTc Int : 443 ms Sinus bradycardia with 1st degree A-V block T wave abnormality, consider lateral ischemia Abnormal ECG Confirmed by CHRIS ZHAO, TOMY ([id number]), features editor CYNTHIA BAZZI ([id number]) on 09/25/2021 7:21:04 AM Referred By: Confirmed By:STEPHON PEREZ MD
--- NOTE | 2021-09-23 13:00 | EX.ED.DYSGE1 ---
HPI History of Present Illness Chief Complaint: Dizziness Narrative Narrative: Patient presents with lightheadedness. 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 She does have a history of A. fib, she is on Cardizem and flecainide, she is not anticoagulated. She did not feel palpitations. She did not take her pulse at home. She has no chest pain, fever or chills. She has no back pain or tearing sensation. She has no pleuritic component, no lower extremity edema or calf pain or any DVT or PE risk factors PFSH PFSH Medical History Afib Asthma Cancer Diabetes Diverticulitis Hypertension Home Medications albuterol sulfate 1 puff INHALATION Q6H PRN PRN 01/25/21 [History Last Taken Unknown] atorvastatin 20 mg PO DAILY 01/25/21 [History Last Taken Unknown] diltiazem HCl 240 mg PO DAILY 01/25/21 [History Last Taken Unknown] dulaglutide [Trulicity] 1.5 mg SUBCUT QWEEK 01/25/21 [History Last Taken Unknown] metformin 500 mg PO DAILY 01/25/21 [History Last Taken Unknown] flecainide 100 mg PO DAILY 09/23/21 [History Last Taken Unknown] Allergy/AdvReac Type Severity Reaction Status Date / Time No Known Allergies Allergy Verified 09/23/21 12:16 Surgical History History of cataract surgery History of cholecystectomy History of hysterectomy Social History Smoking Status: Current every day smoker tobacco type: cigarettes alcohol intake: current alcohol intake frequency: a few times a week ROS ROS ED ROS Narrative Past medical history: Reviewed, consistent with hypertension, atrial fibrillation, diabetes and hypercholesterolemia. Medications: Reviewed Social history: Lives home with daughter. Review of systems: All systems negative except as indicated General: No fever. Lightheaded as in HPI Eyes: No visual changes ENT: No upper airway congestion, normal voice Neck: No neck pain Cardiovascular: No chest pain. No palpitations. Respiratory: No shortness of breath or cough Gastrointestinal: No abdominal pain, nausea vomiting or diarrhea Genitourinary: No dysuria Musculoskeletal: Denies myalgias no difficulty with ambulation Skin: No rash Neurological: No memory loss, confusion or any focal weakness. No vertiginous symptoms. Psych: No recent behavioral changes Hematologic: No easy bleeding or easy bruising EXAM Physical Exam Narrative Exam Narrative: Physical exam General: Well nourished, Well developed, No Acute Distress Head: Normocephalic, Atraumatic Eyes: Conjunctiva not pale ENT: Moist mucous membranes Neck: Supple, Nontender, No lymphadenopathy Cardiovascular: Regular rate, Regular rhythm Respiratory: No distress, CTA bilaterally Abdomen: Soft, Nontender, Nondistended Back: Nontender, Normal Inspection. Negative for: CVA tenderness Extremities: Nontender, No edema Skin: Normal color, No rash Neurological: Alert, Normal Strength, Normal Sensation. Normal cerebellar. No ataxia. Psychological: Normal affect Const Vital Signs: 09/23/21 12:16 09/23/21 12:26 Temperature 97.5 F L Temperature Source Temporal Pulse Rate 80 Respiratory Rate 14 Respiratory Effort Normal Non-Labored Respiratory Pattern Normal Blood Pressure 184/82 H Blood Pressure Mean 116 Pulse Ox 98 Oxygen Delivery Method Room Air MDM MDM MDM Narrative Medical decision making narrative: Patient is now asymptomatic. She appears well. She has normal cerebellar function, she has no vertigo or disequilibrium she has lightheadedness. She has an unremarkable ED work-up. She has no palpitations, she has no chest pain or shortness of breath. I do not believe any further ED work-up is warranted I do not believe inpatient admission is warranted. 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 Lab Data Labs: Laboratory Results - last 24 hr 09/23/21 09/23/21 09/23/21 13:15 13:20 13:20 WBC 11.2 H RBC 5.02 Hgb 14.4 Hct 42.5 MCV 84.7 MCH 28.7 MCHC 33.9 RDW Std Deviation 41.0 RDW Coeff of Chloe 13.2 Plt Count 316 MPV 10.3 Immature Gran % (Auto) 0.400 Neut % (Auto) 58.8 Lymph % (Auto) 32.4 [place] % (Auto) 5.5 Eos % (Auto) 2.5 Baso % (Auto) 0.4 Absolute Neuts (auto) 6.6 Absolute Lymphs (auto) 3.62 Nucleated RBC % 0 Sodium 137 Potassium 3.6 Chloride 104 Carbon Dioxide 27.0 Anion Gap 6 BUN 13 Creatinine 0.87 Estim Creat Clear Calc 61.86 Est GFR (MDRD) Af Amer 88 Est GFR (MDRD) Non-Af 72 BUN/Creatinine Ratio 15.0 Glucose 137 H Calcium 8.6 Total Bilirubin 0.40 AST 10 L ALT 34 Alkaline Phosphatase 73 Troponin I High Sens 6 Total Protein 7.5 Albumin 3.4 Globulin 4.1 Albumin/Globulin Ratio 0.8 L Urine Color Yellow Urine Clarity Clear Urine pH 6.0 Ur Specific [place] 1.020 Urine Protein Negative Urine Glucose (UA) Normal Urine Ketones Negative Urine Occult Blood Negative Urine Nitrite Negative Urine Bilirubin Negative Urine Urobilinogen Normal Ur Leukocyte Esterase Negative Urine RBC 0 SEEN Urine WBC 0 SEEN Ur Squamous Epith Cells 0-5 SEEN Urine Bacteria 0 SEEN Urine Mucus 0 SEEN EKG Initial EKG: Comments: Sinus rhythm with a rate of 55. Normal GA and QTc intervals. Lateral T wave inversion. Otherwise normal EKG. Interpreted by emergency doctor. Discharge Plan Triage Chief Complaint: Dizziness ED Provider: Andres Barajas Dx/Rx/DC Orders Clinical Impression: Light-headed Instructions: ED Dizziness, Uncertain Cause Prescriptions: No Action atorvastatin 20 mg tablet 20 mg PO DAILY RF: 0 diltiazem HCl 240 mg capsule,extended release 24hr 240 mg PO DAILY RF: 0 albuterol sulfate 90 mcg/actuation HFA aerosol inhaler 1 puff INHALATION Q6H PRN PRN (Reason: Wheezing) RF: 0 metformin 500 mg tablet extended release 24 hr 500 mg PO DAILY RF: 0 Trulicity 1.5 mg/0.5 mL pen injector 1.5 mg SUBCUT QWEEK RF: 0 flecainide 100 mg tablet 100 mg PO DAILY RF: 0 Primary Care Provider: Demarcus Vasques Referrals: Demarcus Vasques DO [Primary Care Provider] - 2 Days Disposition Disposition: Home, Self Care
[2021-09-23 13:27] LABS: Bacteria 0 SEEN /hpf (None Seen); Mucous, Urine 0 SEEN /hpf (<or=2+); Red Blood Cells-Urine 0 SEEN /hpf (0-5); White Blood Cells 0 SEEN /hpf (0-5)
[2021-09-23 13:29] LABS: Absolute Lymphocyte Count 3.62 X10^3/uL (0.83-4.51); Absolute Neutrophil Count 6.6 X10^3/uL (2.0-7.7); Basophil# 0.04 X10^3/uL; Basophil% 0.4 % (0-1); Eosinophil# 0.28 X10^3/uL; Eosinophils% 2.5 % (0-5); Hematocrit 42.5 % (37-47); Hemoglobin 14.4 g/dL (12.0-15.0); Lymphocyte # 3.62 X10^3/ul (0.83-4.51); Lymphocyte % 32.4 % (19-41); Mean Corp Hgb Conc 33.9 g/dL (32-36); Mean Corpuscular Hgb 28.7 pg (27.0-32.0); Mean Corpuscular Volume 84.7 fL (81-99); Mean Platelet Vol. 10.3 fl (6.2-12.0); Monocyte# 0.62 X10^3/uL; Monocyte% 5.5 % (0-10); NRBC Flagged by Analyzer 0 % (0-5); Neutrophil # 6.59 X10^3/uL (2.7-7.7); Neutrophil % 58.8 % (47-70); Platelet Count 316 K/mm3 (150-450); RBC Distribution Width CV 13.2 % (11.6-14.6); Red Blood Count 5.02 M/mm3 (4.2-5.4); White Blood Count 11.2 K/mm3 (4.4-11.0)
[2021-09-23 13:31] LABS: Color, Urine Yellow (Yellow); Glucose, Dipstick Normal (Normal); Ketone-Dipstick Negative (Negative); Leukocyte Esterase-Dipstick Negative /ul (Negative); Nitrite-Dipstick Negative (Negative); Occult Blood-Urine Negative /ul (Negative); Protein-Dipstick Negative (Negative); Urine Bilirubin Dipstick Negative (Negative); Urine Clarity Clear (Clear); Urine Urobilinogen Normal (Normal)
[2021-09-23 13:39] LABS: Squamous Epithelial Cells - UA 0-5 SEEN /hpf (5-10)
[2021-09-23 13:48] LABS: ALB/GLOB Ratio 0.8 RATIO (0.9-2.4); AST(SGOT) 10 U/L (15-37); Alanine Aminotransfer ALT/SGPT 34 U/L (13-56); Albumin, Serum 3.4 g/dL (3.2-5.0); Alkaline Phosphatase 73 U/L (45-117); Anion Gap 6 (5-15); BUN 13 mg/dL (7-18); Calcium,Total 8.6 mg/dL (8.5-10.1); Chloride 104 mmol/L (98-107); Creatinine, Serum 0.87 mg/dL (0.55-1.02); EST Glomerular Filtration Rate 72 mL/min (>60); Est Glom Filt Rate - Afr Amer 88 mL/min (>60); Estimated Creatinine Clearance 61.86 ml/min; Globulin 4.1 g/dL (2.2-4.2); Glucose 137 mg/dL (74-106); Potassium 3.6 mmol/L (3.5-5.1); Protein, Total 7.5 g/dL (6.4-8.2); Sodium Level 137 mmol/L (136-145); Troponin-I HS 6 pg/mL (3.0-54.0)
[2021-09-23 15:05] VITALS: BP 180/76; PULSE 67; RESP 16; O2SAT 100
== END 2021-09-23 15:05 | disposition home or self-care (01) ==
PROVIDERS: Emergency Provider Emergency Medicine; PCP Preventive Medicine Occupational Medicine; Visit Provider Emergency Medicine
DX: R42 Dizziness and giddiness (principal); I48.91 Unspecified atrial fibrillation; E11.9 Type 2 diabetes mellitus without complications; I10 Essential (primary) hypertension; F17.210 Nicotine dependence, cigarettes, uncomplicated; J45.909 Unspecified asthma, uncomplicated; Z79.84 Long term (current) use of oral hypoglycemic drugs; Z79.899 Other long term (current) drug therapy; R94.31 Abnormal electrocardiogram [ECG] [EKG]; I44.0 Atrioventricular block, first degree
CPT/HCPCS: 80053; 81001; 84484; 85025; 93005; 93225; 93226; 99284; A4216

== ENCOUNTER 2021-09-23 14:36 | Outpatient (CLI) | payer MEDICAID, SELFPAY | END 2021-09-23 23:59 | disposition home or self-care (01) | LOC: CVS 14:38 | PROVIDERS: PCP Preventive Medicine Occupational Medicine; Referring Provider Internal Medicine Cardiovascular Disease; Visit Provider Emergency Medicine | DX: R42 Dizziness and giddiness (principal) | CPT/HCPCS: 93226; 93225 ==

== ENCOUNTER 2021-09-25 10:45 | Emergency (ER) | payer MEDICAID, SELFPAY ==
[2021-09-25 10:45] VITALS: BP 191/78; PULSE 72; RESP 18; TEMP 35.5; O2SAT 98; BMI 42.5
--- NOTE | 2021-09-25 11:19 | EKG12_ITS ---
Test Reason : CP Blood Pressure : / mmHG Vent. Rate : 065 BPM Atrial Rate : 065 BPM P-R Int : 206 ms QRS Dur : 112 ms QT Int : 482 ms P-R-T Axes : 026 -03 118 degrees QTc Int : 501 ms Normal sinus rhythm Nonspecific T wave abnormality Prolonged QT Abnormal ECG Confirmed by CHRIS ZHAO, TOMY ([id number]), staff editor RUKHSANA CORNELIUS ([id number]) on 09/28/2021 11:07:07 A M Referred By: Omari Molina Confirmed By:STEPHON PEREZ MD
--- NOTE | 2021-09-25 11:19 | RAD_ITS ---
EXAM: XR CHEST, 1 VIEW : 1965 CLINICAL INDICATION: chest pain TECHNIQUE: Frontal view of the chest. This report was created using [employer] report generation technology. COMPARISON: 02/04/2021 FINDINGS: LUNGS AND PLEURAL SPACES: Unremarkable. No consolidation or edema. No pneumothorax. No effusion. HEART: Unremarkable. Cardiac silhouette not enlarged. MEDIASTINUM: Central airways and mediastinal contour are unremarkable. BONES/JOINTS: Unremarkable. SOFT TISSUES: Unremarkable. RAD/Chest 1 View (Portable) IMPRESSION: No radiographic evidence of acute cardiopulmonary disease. at 1250 Reported and signed by: Miah De La Rosa MD Electronically Signed: Miah De La Rosa MD at 12:48 EDT ,
[2021-09-25 11:45] VITALS: BP 156/70; PULSE 58; RESP 12; O2SAT 98
[2021-09-25 11:48] LABS: Absolute Neutrophil Count 7.2 X10^3/uL (2.0-7.7); Basophil# 0.03 X10^3/uL; Basophil% 0.3 % (0-1); Eosinophil# 0.28 X10^3/uL; Eosinophils% 2.5 % (0-5); Hematocrit 44.9 % (37-47); Hemoglobin 15.4 g/dL (12.0-15.0); Lymphocyte % 27.7 % (19-41); Mean Corp Hgb Conc 34.3 g/dL (32-36); Mean Corpuscular Hgb 29.8 pg (27.0-32.0); Mean Corpuscular Volume 86.8 fL (81-99); Mean Platelet Vol. 10.2 fl (6.2-12.0); Monocyte# 0.57 X10^3/uL; Monocyte% 5.1 % (0-10); NRBC Flagged by Analyzer 0 % (0-5); Neutrophil # 7.17 X10^3/uL (2.7-7.7); Platelet Count 334 K/mm3 (150-450); RBC Distribution Width CV 13.2 % (11.6-14.6); RBC Distribution Width SD 41.7 fl (35.1-43.9); Red Blood Count 5.17 M/mm3 (4.2-5.4); White Blood Count 11.2 K/mm3 (4.4-11.0)
--- NOTE | 2021-09-25 11:54 | ED.VIS.CHEST ---
HPI History of Present Illness Chief Complaint: Chest Pain Informant: patient Onset/Context/Timing Onset: Today Activity at onset: gradual Timing: Intermittent and Lasts (Few minutes) Quality: Positive for Heaviness and Tightness Location: Substernal Worsened By: Nothing Relieved By: Nothing Associated Symptoms: Positive for Dyspnea and Lightheadedness; Negative for Nausea, Vomiting, Diaphoresis, Cough, Fever, Acid Reflux and Palpitations Narrative Narrative: Patient presents with chest pain that began today. Patient states she was having some episodes of lightheadedness yesterday. Patient states that her chest pain has been intermittent today. Patient states it lasts only a few minutes. Patient describes it as a tightness and heaviness. Patient states it is over the substernal area. Patient states nothing makes it better nothing makes it worse. Patient states she has been having some lightheaded episodes that have also been intermittent. Patient states it feels like she is going to pass out. Patient states it does seem to be worse whenever she moves her head. Patient admits to some occasional shortness of breath. Patient also states she has been having some pain in her right anterior neck and frontal area when she had her chest pain. CVD Risk Factors: Positive for Hypertension, Diabetes and Smoking; Negative for Hypercholesterolemia and Family History 1' </=55 PE Risk Factors: Negative for Recent Travel/Surgery, Recent Immobilization, Prior DVT or PE, Cancer and OCP + Smoking + >/=35 PFSH PFSH Medical History Afib Asthma Cancer Diabetes Diverticulitis Hypertension Home Medications albuterol sulfate 1 puff INHALATION Q6H PRN PRN 01/25/21 [History Last Taken Unknown] atorvastatin 20 mg PO DAILY 01/25/21 [History Last Taken Unknown] diltiazem HCl 240 mg PO DAILY 01/25/21 [History Last Taken Unknown] dulaglutide [Trulicity] 1.5 mg SUBCUT QWEEK 01/25/21 [History Last Taken Unknown] metformin 500 mg PO DAILY 01/25/21 [History Last Taken Unknown] flecainide 100 mg PO BID 09/23/21 [History Last Taken Unknown] Allergy/AdvReac Type Severity Reaction Status Date / Time No Known Allergies Allergy Verified 09/23/21 12:16 Surgical History History of cataract surgery History of cholecystectomy History of hysterectomy Social History Smoking Status: Current every day smoker tobacco type: cigarettes alcohol intake: current alcohol intake frequency: a few times a week ROS ROS ED Constitutional Constitutional ED: Denies chills or fever(s) Eyes Eyes: Denies blurry vision or change in vision ENT ENT ED: Denies rhinorrhea or sore throat Cardiovascular Cardiovascular: Reports as per HPI and chest pain; Denies palpitations Respiratory/Chest Respiratory/Chest: Reports dyspnea; Denies cough Gastrointestinal Gastrointestinal: Reports nausea; Denies abdominal pain or vomiting Genitourinary Genitourinary ED: Denies dysuria or hematuria Musculoskeletal Musculoskeletal: Reports neck pain; Denies back pain Integumentary Denies abscess or rash Neurologic Neurologic: Reports headache(s); Denies weakness Allergic/Immunologic Allergic/Immunologic ED: Denies mouth swelling or urticaria EXAM Physical Exam Const Vital Signs: 09/25/21 10:45 09/25/21 11:45 09/25/21 11:54 Temperature 96 F L Temperature Source Temporal Pulse Rate 72 58 L Respiratory Rate 18 12 Respiratory Effort Normal Respiratory Pattern Blood Pressure 191/78 H 156/70 H Blood Pressure Mean 115 98 Pulse Ox 98 98 Oxygen Delivery Method Room Air Room Air 09/25/21 12:48 09/25/21 13:09 Temperature Temperature Source Pulse Rate 65 58 L Respiratory Rate 20 H 16 Respiratory Effort Respiratory Pattern Normal Blood Pressure 137/76 H Blood Pressure Mean 96 Pulse Ox 98 Oxygen Delivery Method Room Air Positive well nourished, well developed and obese General Appearance ED: well developed and NAD Nutritional Appearance: obese HEENT normocephalic and atraumatic Eyes PERRL and EOMs intact bilaterally Neck supple and no JVD Chest Wall palpation of chest normal Resp normal respiratory effort Effort and Inspection: Negative for respiratory distress Auscultation: wheezes expiratory wheezes (Faint) and throughout Cardio regular rhythm and no murmurs Rate: bradycardia GI normal to inspection, nondistended, normoactive bowel sounds, soft to palpation, non-tender and non-distended Extremity normal to inspection General Extremety ED: Negative for edema or tenderness General Extremity: Negative for edema Neuro oriented x3, CN's II-XII intact bilaterally and no sensory deficits noted Sensorium / Orientation: awake and alert Motor Exam: strength 5/5 throughout Psych mental status grossly normal Heart Score History: Slightly/Non-Suspicious ECG: Nonspecific Repolarization Age: >45 - <65 years Risk Factors: >/= 3 Risk Factors or History of CAD Troponin: </= Normal Limit Score: 4 MDM MDM MDM Narrative Medical decision making narrative: Patient was given aspirin. EKG was obtained. On my interpretation it shows a normal sinus rhythm with a rate of 65. UT interval slightly prolonged at 206. QRS interval was normal. QTC was slightly prolonged at 501 ms. [place] was normal. There are nonspecific ST-T wave changes in the lateral leads. Portable 1 view chest x-ray was obtained. On my interpretation, lung kellogg are clear. There is normal cardiac silhouette. Bony thorax is normal. There is no acute process noted. Radiologist also interpreted the x-ray and agrees. CBC was within normal limits. Basic metabolic profile is within normal limits. High-sensitivity troponin was normal. Patient was advised of her findings. Patient has a HEART score of 4. Patient was instructed to follow-up with her primary care physician for her Holter monitor results and further evaluation. Patient understood and was agreeable with the plan. All questions were answered. Lab Data Attestation: I reviewed the patient's lab results. Labs: Laboratory Results - last 24 hr 09/25/21 09/25/21 11:40 11:40 WBC 11.2 H RBC 5.17 Hgb 15.4 H Hct 44.9 MCV 86.8 MCH 29.8 MCHC 34.3 RDW Std Deviation 41.7 RDW Coeff of Chloe 13.2 Plt Count 334 MPV 10.2 Immature Gran % (Auto) 0.400 Neut % (Auto) 64.0 Lymph % (Auto) 27.7 [place] % (Auto) 5.1 Eos % (Auto) 2.5 Baso % (Auto) 0.3 Absolute Neuts (auto) 7.2 Absolute Lymphs (auto) 3.10 Nucleated RBC % 0 Sodium 138 Potassium 4.3 Chloride 105 Carbon Dioxide 29.0 Anion Gap 4 L BUN 15 Creatinine 0.91 Estim Creat Clear Calc 59.14 Est GFR (MDRD) Af Amer 83 Est GFR (MDRD) Non-Af 69 BUN/Creatinine Ratio 16.5 Glucose 113 H Calcium 9.4 Troponin I High Sens 10 Radiography Chest X-Ray - ED: 1 View, Read by ED Physician, Read by Radiologist and Normal Diagnostic Testing: Clinical Impression(s) from Imaging Studies Chest X-Ray 09/25/21 11:19 IMPRESSION: No radiographic evidence of acute cardiopulmonary disease. at 1250 Reported and signed by: Miah De La Rosa MD Electronically Signed: Miah De La Rosa MD at 12:48 EDT , EKG Initial EKG: Attestation: I personally reviewed and interpreted this EKG as follows: Interpretation: Sinus Rhythm (65), No Acute Injury Pattern and Non-Specific ST Changes Prior EKG tracings: available for review Prior: Unchanged (09/23/2021) Discharge Plan Triage Chief Complaint: Chest Pain ED Provider: Omari Molina Dx/Rx/DC Orders Clinical Impression: Chest pain Instructions: ED Chest Pain, Uncertain Cause Prescriptions: No Action atorvastatin 20 mg tablet 20 mg PO DAILY RF: 0 diltiazem HCl 240 mg capsule,extended release 24hr 240 mg PO DAILY RF: 0 albuterol sulfate 90 mcg/actuation HFA aerosol inhaler 1 puff INHALATION Q6H PRN PRN (Reason: Wheezing) RF: 0 metformin 500 mg tablet extended release 24 hr 500 mg PO DAILY RF: 0 Trulicity 1.5 mg/0.5 mL pen injector 1.5 mg SUBCUT QWEEK RF: 0 flecainide 100 mg tablet 100 mg PO BID RF: 0 Primary Care Provider: Demarcus Vasques Referrals: Demarcus Vasques DO [Primary Care Provider] - 3-5 Days Disposition Disposition: Home, Self Care
[2021-09-25 12:05] LABS: Anion Gap 4 (5-15); BUN 15 mg/dL (7-18); BUN/Creat Ratio 16.5 RATIO (10-20); Calcium,Total 9.4 mg/dL (8.5-10.1); Chloride 105 mmol/L (98-107); Creatinine, Serum 0.91 mg/dL (0.55-1.02); EST Glomerular Filtration Rate 69 mL/min (>60); Est Glom Filt Rate - Afr Amer 83 mL/min (>60); Estimated Creatinine Clearance 59.14 ml/min; Glucose 113 mg/dL (74-106); Potassium 4.3 mmol/L (3.5-5.1); Sodium Level 138 mmol/L (136-145); Troponin-I HS 10 pg/mL (3.0-54.0)
[2021-09-25] MEDS: Meclizine HCl 25 MG Tablet PO (12:33)
[2021-09-25] MEDS: Aspirin 81 MG TAB.CHEW 324 MG PO (12:34)
[2021-09-25] MEDS: Albuterol 2.5 MG/3 ML VIAL.NEB. INHALATION (12:43)
[2021-09-25 12:48] VITALS: PULSE 65; RESP 20
[2021-09-25 13:09] VITALS: BP 137/76; PULSE 58; RESP 16; O2SAT 98
[2021-09-25 13:59] VITALS: BP 134/78; PULSE 76; RESP 18; TEMP 36.9; O2SAT 98
== END 2021-09-25 13:59 | disposition home or self-care (01) ==
PROVIDERS: Emergency Provider Emergency Medicine; PCP Preventive Medicine Occupational Medicine; Referring Provider Emergency Medicine; Visit Provider Emergency Medicine
DX: R07.9 Chest pain, unspecified (principal); Z68.41 Body mass index [BMI] 40.0-44.9, adult; E11.9 Type 2 diabetes mellitus without complications; I10 Essential (primary) hypertension; J45.909 Unspecified asthma, uncomplicated; E66.9 Obesity, unspecified; F17.210 Nicotine dependence, cigarettes, uncomplicated; Z79.51 Long term (current) use of inhaled steroids; Z79.84 Long term (current) use of oral hypoglycemic drugs; Z79.899 Other long term (current) drug therapy
CPT/HCPCS: 71045; 80048; 84484; 85025; 93005; 94640; 99285; A4216

== ENCOUNTER 2022-02-21 16:36 | Emergency (ER) | payer MEDICAID, SELFPAY ==
[2022-02-21 16:37] VITALS: BP 110/84; PULSE 70; RESP 24; TEMP 35.7; O2SAT 98; BMI 43.3
[2022-02-21 16:39] VITALS: BP 110/84; PULSE 70; RESP 24; TEMP 35.7; O2SAT 98
--- NOTE | 2022-02-21 17:27 | EKG12_ITS ---
Test Reason : Blood Pressure : / mmHG Vent. Rate : 069 BPM Atrial Rate : 069 BPM P-R Int : 186 ms QRS Dur : 108 ms QT Int : 454 ms P-R-T Axes : 078 026 104 degrees QTc Int : 486 ms Sinus rhythm with Premature atrial complexes with Aberrant conduction Incomplete right bundle branch block Nonspecific T wave abnormality Prolonged QT Abnormal ECG Confirmed by HUMBLE ZHAO, NIURKA ([id number]), acquisition editor RUKHSANA CORNELIUS ([id number]) on 02/22/2022 2:00:31 PM Referred By: Confirmed By:NIURKA KATE MD
[2022-02-21 17:36] LABS: Absolute Lymphocyte Count 4.32 X10^3/uL (0.83-4.51); Absolute Neutrophil Count 9.4 X10^3/uL (2.0-7.7); Basophil# 0.06 X10^3/uL; Basophil% 0.4 % (0-1); Eosinophils% 3.3 % (0-5); Hematocrit 44.6 % (37-47); Hemoglobin 14.6 g/dL (12.0-15.0); Lymphocyte # 4.32 X10^3/ul (0.83-4.51); Lymphocyte % 28.5 % (19-41); Mean Corp Hgb Conc 32.7 g/dL (32-36); Mean Corpuscular Hgb 28.9 pg (27.0-32.0); Mean Corpuscular Volume 88.3 fL (81-99); Mean Platelet Vol. 10.9 fl (6.2-12.0); Monocyte# 0.78 X10^3/uL; Monocyte% 5.1 % (0-10); NRBC Flagged by Analyzer 0 % (0-5); Neutrophil # 9.41 X10^3/uL (2.7-7.7); Neutrophil % 62.1 % (47-70); Platelet Count 330 K/mm3 (150-450); RBC Distribution Width CV 13.3 % (11.6-14.6); Red Blood Count 5.05 M/mm3 (4.2-5.4); White Blood Count 15.2 K/mm3 (4.4-11.0)
--- NOTE | 2022-02-21 17:44 | EDS_ITS ---
HPI History of Present Illness Chief Complaint: Chest Pain Informant: patient Onset/Context/Timing Onset: Weeks Timing: Intermittent Current Severity: Mild Maximum Severity: Mild Narrative Narrative: Patient presents with intermittent palpitations over the past 2 weeks. She states has had a similar in the past. Last 2 weeks has been noticing more frequently. She states there will be some chest pressure. She also has allergies right now with congestion and cough. No fever noted. She states the last time she had increased palpitations they increased her flecainide and decreased her Cardizem. [facility] Medical History Afib Asthma Cancer Diabetes Diverticulitis Hypertension Home Medications albuterol sulfate 90 mcg/actuation aerosol inhaler 1 puff inhalation Q6H PRN PRN Wheezing 01/25/21 [History Last Taken Unknown] atorvastatin 20 mg tablet 20 mg PO DAILY 01/25/21 [History Last Taken Unknown] diltiazem HCl 240 mg capsule,extended release 24 hr 240 mg PO DAILY 01/25/21 [History Last Taken Unknown] dulaglutide 1.5 mg/0.5 mL subcutaneous pen injector (Trulicity) 1.5 mg subcut QWEEK 01/25/21 [History Last Taken Unknown] metformin 500 mg tablet,extended release 24 hr 500 mg PO DAILY 01/25/21 [History Last Taken Unknown] flecainide 100 mg tablet 100 mg PO BID 09/23/21 [History Last Taken Unknown] calcium carbonate 500 mg-vitamin D3 10 mcg (400 unit) tablet 1 tab PO 02/21/22 [History Last Taken Unknown] doxycycline monohydrate 100 mg capsule 100 mg PO BID #20 caps 02/21/22 [Rx Last Taken Unknown] Allergy/AdvReac Type Severity Reaction Status Date / Time No Known Allergies Allergy Verified 09/23/21 12:16 Surgical History History of cataract surgery History of cholecystectomy History of hysterectomy Social History Smoking Status: Current every day smoker tobacco type: cigarettes alcohol intake: current alcohol intake frequency: a few times a week ROS ROS ED Constitutional Constitutional ED: Denies chills or fever(s) Eyes Eyes: Denies change in vision or discharge from eye(s) ENT ENT ED: Denies discharge from eye(s), rhinorrhea or sore throat Cardiovascular Cardiovascular: Reports chest pain and palpitations Respiratory/Chest Respiratory/Chest: Reports cough and sputum; Denies dyspnea Gastrointestinal Gastrointestinal: Denies abdominal pain, diarrhea, nausea or vomiting Genitourinary Genitourinary ED: Denies difficulty urinating or dysuria Musculoskeletal Musculoskeletal: Denies back pain or extremity pain Integumentary Denies Abrasions or rash Neurologic Neurologic: Denies headache(s) or weakness Allergic/Immunologic Allergic/Immunologic ED: Denies lip swelling or urticaria EXAM Physical Exam Narrative Exam Narrative: 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 Const Vital Signs: 02/21/22 16:37 02/21/22 16:39 02/21/22 17:45 Temperature 96.2 F L 96.2 F L Temperature Source Temporal Temporal Pulse Rate 70 70 Respiratory Rate 24 H 24 H Respiratory Effort Blood Pressure 110/84 H 110/84 H Blood Pressure Mean 92 92 Pulse Ox 98 98 95 Oxygen Delivery Method Room Air Room Air Room Air 02/21/22 17:46 02/21/22 19:19 02/21/22 19:45 Temperature Temperature Source Pulse Rate 70 71 Respiratory Rate 18 16 Respiratory Effort Normal Blood Pressure 158/72 H 137/93 H Blood Pressure Mean 100 107 Pulse Ox 95 97 Oxygen Delivery Method Room Air Room Air Positive well nourished and well developed General Appearance ED: well developed HEENT Reports normocephalic and head/scalp atraumatic Eyes PERRL and EOMs intact bilaterally Neck supple Chest Wall inspection of chest normal and palpation of chest normal Resp normal respiratory effort and clear to auscultation bilaterally Cardio regular rate and regular rhythm GI normal to inspection, nondistended, normoactive bowel sounds Palpation: soft Extremity normal to inspection Neuro oriented x3 and no sensory deficits noted Sensorium / Orientation: alert Motor Exam: strength 5/5 throughout Psych mental status grossly normal Skin no rashes or lesions noted MDM MDM MDM Narrative Medical decision making narrative: EKG, chest x-ray, lab work obtained. Lab Data Attestation: I reviewed the patient's lab results. Labs: Laboratory Results - last 24 hr 02/21/22 02/21/22 02/21/22 17:01 17:01 19:40 WBC 15.2 H RBC 5.05 Hgb 14.6 Hct 44.6 MCV 88.3 MCH 28.9 MCHC 32.7 RDW Std Deviation 43.0 RDW Coeff of Chloe 13.3 Plt Count 330 MPV 10.9 Immature Gran % (Auto) 0.600 Neut % (Auto) 62.1 Lymph % (Auto) 28.5 [place] % (Auto) 5.1 Eos % (Auto) 3.3 Baso % (Auto) 0.4 Absolute Neuts (auto) 9.4 H Absolute Lymphs (auto) 4.32 Nucleated RBC % 0 Sodium 139 Potassium 4.0 Chloride 105 Carbon Dioxide 27.0 Anion Gap 7 BUN 23 H Creatinine 0.76 Estim Creat Clear Calc 70.00 Est GFR (MDRD) Af Amer 102 Est GFR (MDRD) Non-Af 84 BUN/Creatinine Ratio 30.3 H Glucose 109 H Calcium 9.2 Troponin I High Sens 8 10 Radiography Diagnostic Testing: Clinical Impression(s) from Imaging Studies Chest X-Ray 02/21/22 18:09 IMPRESSION: No acute radiographic abnormalities. Electronically Signed: Jonny Farley MD at 19:36 EDT , EKG Initial EKG: Attestation: I personally reviewed and interpreted this EKG as follows: Interpretation: Sinus Rhythm (Sinus at 69 with occasional PVC. No acute ischemia.) Treatment and Re-Evaluation Narrative: Repeat evaluation patient resting comfortably. She still has symptoms with her PVCs which are not frequent on the monitor. CBC reveals a white count of 15.2 but normal differential noted. It appears her baseline white count is around 11. Chemistry studies are unremarkable. Troponin is 8 with repeat of 10. Chest x-ray is unremarkable. Patient does have significant cough and congestion with elevated white count. I will go ahead and treat her with a course of antibiotics for bronchitis. I advised her to avoid any cold medicines with stimulants as this may cause more frequent PVCs. She will contact her fiction and nonfiction prose writer at [place] for follow-up. Discharge Plan Triage Chief Complaint: Chest Pain ED Provider: Clare Bateman Dx/Rx/DC Orders Clinical Impression: Heart palpitations, Bronchitis Instructions: ED Upper Resp Infec Abx Tx, ED Palpitations Prescriptions: New doxycycline monohydrate 100 mg capsule 100 mg PO BID Qty: 20 0RF No Action atorvastatin 20 mg tablet 20 mg PO DAILY Label Comments: TAKE 1 TABLET BY MOUTH EVERY DAY diltiazem HCl 240 mg capsule,extended release 24hr 240 mg PO DAILY Label Comments: TAKE 1 CAPSULE BY MOUTH EVERY DAY albuterol sulfate 90 mcg/actuation HFA aerosol inhaler 1 puff INHALATION Q6H PRN PRN (Reason: Wheezing) Label Comments: INHALE ONE (1) PUFF BY MOUTH EVERY 6 HOURS NEEDED FOR WHEEZING metformin 500 mg tablet extended release 24 hr 500 mg PO DAILY Label Comments: TAKE FOUR (4) TABLETS BY MOUTH EVERY DAY Trulicity 1.5 mg/0.5 mL pen injector 1.5 mg SUBCUT QWEEK Label Comments: INJECT 0.5 ML SUBCUTANEOUSLY ONCE WEEKLY. ROTATE INJECTION SITES. TO REPLACE THE 0.75 MG DOSE. flecainide 100 mg tablet 100 mg PO BID Label Comments: TAKE 1 TABLET BY MOUTH EVERY 12 HOURS calcium carbonate-vitamin D3 500 mg-10 mcg (400 unit) tablet 1 tab PO Primary Care Provider: Demarcus Vasques Referrals: Demarcus Vasques DO [Primary Care Provider] - 1 Week Activity Restrictions/Additional Instructions: Follow-up with your fiction and nonfiction prose writer as planned. Disposition Disposition: Home, Self Care
[2022-02-21 17:45] VITALS: O2SAT 95
[2022-02-21 17:55] LABS: Anion Gap 7 (5-15); BUN 23 mg/dL (7-18); BUN/Creat Ratio 30.3 RATIO (10-20); Calcium,Total 9.2 mg/dL (8.5-10.1); Chloride 105 mmol/L (98-107); Creatinine, Serum 0.76 mg/dL (0.55-1.02); EST Glomerular Filtration Rate 84 mL/min (>60); Est Glom Filt Rate - Afr Amer 102 mL/min (>60); Glucose 109 mg/dL (74-106); Sodium Level 139 mmol/L (136-145); Troponin-I HS (w/2H Reflex) 8 pg/mL (3.0-54.0)
--- NOTE | 2022-02-21 18:09 | RAD_ITS ---
INDICATION: chest pain EXAMINATION/TECHNIQUE: X-RAY - XR Chest 1 View COMPARISON: None. FINDINGS: The lungs are clear. The cardiomediastinal silhouette is unremarkable. No pleural effusion or pneumothorax. Degenerative changes of the thoracic spine. RAD/Chest 1 View (Portable) IMPRESSION: No acute radiographic abnormalities. Electronically Signed: Jonny Farley MD at 19:36 EDT ,
[2022-02-21 19:19] VITALS: BP 158/72; PULSE 70; RESP 18; O2SAT 95
[2022-02-21 19:33] LABS: Reflex Troponin-HS? (from REC) Y
[2022-02-21 19:45] VITALS: BP 137/93; PULSE 71; RESP 16; O2SAT 97
[2022-02-21 20:01] LABS: Troponin-I HS 10 pg/mL (3.0-54.0)
[2022-02-21] MEDS: Doxycycline 100 MG CAPSULE PO (21:24)
[2022-02-21 21:29] VITALS: BP 137/93; PULSE 68; RESP 16; O2SAT 96
== END 2022-02-21 21:30 | disposition home or self-care (01) ==
PROVIDERS: Emergency Provider Emergency Medicine; PCP Preventive Medicine Occupational Medicine; Visit Provider Emergency Medicine
DX: R00.2 Palpitations (principal); I48.91 Unspecified atrial fibrillation; E11.9 Type 2 diabetes mellitus without complications; F17.210 Nicotine dependence, cigarettes, uncomplicated; J40 Bronchitis, not specified as acute or chronic; I10 Essential (primary) hypertension; J45.909 Unspecified asthma, uncomplicated
CPT/HCPCS: 71045; 80048; 84484; 85025; 93005; 99285; A4216

== ENCOUNTER 2023-07-18 03:02 | Emergency (ER) | payer MEDICARE, MEDICAID, SELFPAY ==
[2023-07-18 03:03] VITALS: BP 197/93; PULSE 81; RESP 16; TEMP 36.7; O2SAT 98; BMI 46.4
--- OUTSIDE RECORDS SUMMARY | 2023-07-18 03:30 | XMS RPT_ITS | CCD ---
Author Name Unknown Address [address] [facility] [address] [place] [address] Organization [facility] Care Team Providers Care Director Of Analytical Development Name Role Phone Horacio De La Cruz Unavailable Unavailable PROVIDER, UNKNOWN Unavailable Unavailable Jeffrey Vasques Unavailable UnavailHoracio Newman Unavailable Unavailable PROVIDER, UNKNOWN Unavailable Unavailable Jeffrey Vasques Unavailable UnavailHoracio Newman Unavailable Unavailable Jeffrey Vasques Unavailable Unavaila america PROVIDER, UNKNOWN Unavailable Unavailable JEFFREY VASQUES DO Primary Care Physician ([phone]) JEFFREY VASQUES DO Primary Care Physician ([phone]) JEFFREY VASQUES DO Primary Care Unavailable JEFFREY VASQUES DO Attending Unavailable JEFFREY VASQUES DO Attending Unavailable JEFFREY VASQUES DO Primary Care Unavailable JEFFREY VASQUES DO Primary Care Unavailable JEFFREY VASQUES DO Attending Unavailable JEFFREY VASQUES DO Primary Care Unavailable JEFFREY VASQUES DO Attending Unavailable Medications Current Medications Medication Drug Class(es) Dates Sig (Normalized) Sig (Original) albuterol MDI (90 mcg/inh) CFC free inhalation aerosol (3 sources) Start: 06-23-2022 take 1 puff(s) by inhalation every six hours as needed for wheezing albuterol MDI (90 mcg/inh) CFC free inhalation aerosol 1 puff(s), Inhalation, q6h, PRN as needed for wheezing, # 3 EA, 3 Refill(s), Pharmacy: [facility], Reactive airway disease, 161, cm, 06/23/22 13:28:00 EST, Height, kg, 06/23/22 13:28:00 EST, Dosing Weight Start Date: 06/23/22 Status: Ordered Problems Active Problems Problem Classification Problem Date Documented Date Episodic/Chronic Asthma (4 sources) Reactive airway disease; Translations: [Asthma] Onset: 03-26-2022 08-08-2020 Chronic Cancer of uterus (2 sources) Malignant neoplasm of endometrium; Translations: [Malignant neoplasm of endometrium] Onset: 06-01-2017 Chronic Cardiac dysrhythmias (5 sources) Atrial fibrillation; Translations: [Ventricular premature beats] 08-18-2020 Chronic Coronary atherosclerosis and other heart disease (3 sources) Coronary arteriosclerosis 11-19-2020 Chronic Diabetes mellitus without complication (5 sources) Type 2 diabetes mellitus without complications; Translations: [Diabetes mellitus] Onset: 06-01-2017 08-08-2020 Chronic Disorders of lipid metabolism (3 sources) Hyperlipidemia 10-06-2020 Chronic Heart valve disorders (3 sources) Heart murmur 08-18-2020 Episodic Menopausal disorders (2 sources) Postmenopausal bleeding; Translations: [Postmenopausal bleeding] Onset: 06-01-2017 Chronic Other ear and sense organ disorders (3 sources) Bilateral tinnitus 06-17-2021 Episodic Other nutritional; endocrine; and metabolic disorders (2 sources) Morbid (severe) obesity due to excess calories; Translations: [Morbid (severe) obesity due to excess calories] Onset: 06-01-2017 Chronic Other nutritional; endocrine; and metabolic disorders (1 source) Body mass index 40+ - severely obese 08-17-2022 Chronic Other nutritional; endocrine; and metabolic disorders (3 sources) Overweight 03-19-2021 Episodic Residual codes; unclassified (3 sources) Obstructive sleep apnea syndrome 10-17-2020 Chronic Residual codes; unclassified (3 sources) Postmenopausal state 09-16-2021 Episodic Spondylosis; intervertebral disc disorders; other back problems (3 sources) Lumbar disc prolapse with radiculopathy 11-13-2019 Episodic Substance-related disorders (3 sources) Nicotine dependence, cigarettes, uncomplicated; Translations: [Tobacco dependence caused by cigarettes] Onset: 06-01-2017 06-23-2022 Chronic Thyroid disorders (2 sources) Hypothyroidism, unspecified; Translations: [Hypothyroidism, unspecified] Onset: 06-01-2017 Chronic Unclassified (2 sources) Body mass index (BMI) 40.0-44.9, adult; Translations: [Body mass index (BMI) 40.0-44.9, adult] Onset: 06-01-2017 Chronic Unclassified (3 sources) Does take medication 09-16-2021 Past or Other Problems Problem Classification Problem Date Documented Da te Episodic/Chronic Other eye disorders (2 sources) Cataract extraction status, unspecified eye; Translations: [Cataract extraction status, unspecified eye] Onset: 06-01-2017 Episodic Unclassified (2 sources) Acquired absence of other specified parts of digestive tract; Translations: [Acquired absence of other specified parts of digestive tract] Onset: 06-01-2017 Episodic Results Test Name Value Interpretation Reference Range Facil ity Vital Signs Date Time Vital Sign Value Performing Clinician Faci lit 03-26-2022 17:48-0400 Diastolic blood pressure 57 mm[Hg] BENTON LEVIN MD [facility] 03-26-2022 17:48-0400 Heart rate 78 /min BENTON LEVIN MD [facility] 03-26-2022 17:48-0400 Respiratory rate 18 /min BENTON LEVIN MD [facility] 03-26-2022 17:48-0400 Systolic blood pressure 119 mm[Hg] BENTON LEVIN MD [facility] 03-26-2022 16:48-0400 Heart rate 66 /min BENTON LEVIN MD [facility] 03-26-2022 16:48-0400 Respiratory rate 18 /min BENTON LEVIN MD [facility] 03-26-2022 16:39-0400 Body temperature 97.88 [degF] BENTON LEVIN MD [facility] 03-26-2022 16:39-0400 Body weight 97.7 kg BENTON LEVIN MD [facility] 03-26-2022 16:39-0400 Diastolic blood pressure 72 mm[Hg] BENTON LEVIN MD [facility] 03-26-2022 16:39-0400 Heart rate 70 /min BENTON LEVIN MD [facility] 03-26-2022 16:39-0400 Respiratory rate 16 /min BENTON LEVIN MD [facility] 03-26-2022 16:39-0400 Systolic blood pressure 152 mm[Hg] BENTON LEVIN MD [facility] Encounters Encounter Date Encounter Type Care Provider Facility Start: 07-14-2023 End: 07-15-2023 ambulatory JEFFREY VASQUES DO Facility:B Start: 06-22-2023 ambulatory JEFFREY VASQUES DO Facil ity:B Start: 09-10-2022 End: 09-11-2022 ambulatory JEFFREY VASQUES DO Facility:A Start: 08-18-2022 End: 08-19-2022 ambulatory JEFFREY VASQUES DO Facility:B Start: 08-18-2022 End: 08-18-2022 Patient encounter procedure JEFFREY VASQUES DO [facility] Start: 03-26-2022 End: 03-26-2022 Emergency department patient visit BENTON LEVIN MD [facility] Start: 12-28-2021 End: 12-28-2021 Patient encounter procedure JEFFREY VASQUES DO [facility] Start: 08-26-2017 End: 08-26-2017 [facility] Start: 06-01-2017 Ambulatory [facility] Start: 05-30-2017 [facility] Start: 05-18-2017 End: 11-10-[address] [facility] Start: 05-13-2017 Ambulatory Horacio Bl[facility] Procedures Date Procedure Procedure Detail Performing Clinician Start: 10-23-2020 Cardiac catheterization JEFFREY VASQUES DO Payers Date Payer Category Payer Private Health Insurance [id number] 2022 Unknown [id number] 1965 Unknown [id number] 1965 Unknown [id number] 1967 Unknown [id number] 1967 Unknown [id number] Unknown Social History Date Type Detail Facility Start: 10-23-2020 Tobacco smoking status Light t obacco smoker (finding) [facility] Sex Assigned At Female [facility] Medical Equipment Procedure Code Equipment Code Equipment Origin al Text Equipment Identifier Dates See Instructions , Dispense True Metrix glucose test strips, #100, UAD daily to test blood sugar, # 100 EA, 3 Refill(s), [facility], Diabetes, 160, cm, 08/18/20 11:14:00 EST, Height, 110, kg, 08/18/20 11:14:00 EST, Dosing Weight Start: 09-29-2020 See Instructions , Dispense UltraFine lancets, #100, UAD daily to test blood sugar, # 100 EA, 3 Refill(s), Pharmacy: [facility]/pharmacy #[id number], Diabetes, 162, cm, 08/08/20 10:29:00 EST, Height, 111.1, kg, 08/08/20 10:29:00 EST, Dosing Weight Start: 08-08-2020 See Instructions , Dispense True Metrix glucose test strips, #100, UAD daily to test blood sugar, # 100 EA, 3 Refill(s), Pharmacy: [facility], Diabetes, 160, cm, 08/18/20 11:14:00 EST, Height, 110, kg, 08/18/20 11:14:00 EST, Dosing Weight Start: 09-29-2020 See Instructions , Dispense UltraFine lancets, #100, UAD daily to test blood sugar, # 100 EA, 3 Refill(s), [id number], Diabetes, 162, cm, 08/08/20 10:29:00 EST, Height, 111.1, kg, 08/08/20 10:29:00 EST, Dosing Weight Start: 08-08-2020 See Instructions , Dispense True Metrix glucose test strips, #100, UAD daily to test blood sugar, # 100 EA, 3 Refill(s), Pharmacy: [facility], Diabetes, 160, cm, 08/18/20 11:14:00 EST, Height, 110, kg, 08/18/20 11:14:00 EST, Dosing Weight Start: 09-29-2020 See Instructions , Dispense UltraFine lancets, #100, UAD daily to test blood sugar, # 100 EA, 3 Refill(s), [id number], Diabetes, 162, cm, 08/08/20 10:29:00 EST, Height, 111.1, kg, 08/08/20 10:29:00 EST, Dosing Weight Start: 08-08-2020 Functional Status Date Assessment Result Facility 03-26-2022 Functional Status Standard Safet y ID band on, Call device within reach, Bed in low position, Wheels locked, Upper/Half-Length side-rails up, Bedside Cart Locked, Safety level maintained [facility] Mental Status Date Assessment Result Facility 03-26-2022 Mental Status Orientation Oriented x 4 [facility] Clinical Notes 03-26-2022 LaboratoryRadiologyLaboratoryRadiology Note Date & Type Note Facility 03-26-2022 Hospital Discharge instructions Patient Education 03/26/2022 18:20:31 Asthma, Acute (Adult) Asthma (Adult) Asthma is a disease where the medium and small air passages within the lung go into spasm and restrict the flow of air. Inflammation and swelling of the airways cause further blockage. During an acute asthma attack, these factors cause trouble breathing, wheezing, cough and chest tightness. An asthma attack can be triggered by many things. Common triggers include infections such as the common cold, bronchitis, and pneumonia. Irritants such as smoke or pollutants in the air, very cold air, emotional upset, and exercise can also trigger an attack. In many adults with asthma, allergies to dust, mold, pollen and animal dander can cause an asthma attack. Skipping doses of daily asthma medicine can also bring on an asthma attack. Asthma can be controlled using the proper medicines prescribed by your healthcare provider and avoiding exposure to known triggers including allergens and irritants. Home care Take prescribed medicine exactly at the times advised. If you need medicine such as from a hand held inhaler or aerosol breathing machine more than every 4 hours, contact your healthcare provider or seek immediate medical attention. If prescribed an antibiotic or prednisone, take all of the medicine as prescribed, even if you are feeling better after a few days. Don't smoke. Avoid being exposed to the smoke of others. Some people with asthma have worsening of their symptoms when they take aspirin and non-steroidal or fever-reducing medicines like ibuprofen and naproxen. Talk to your healthcare provider if you think this may apply to you. Follow-up care Follow up with your healthcare provider, or as advised. Always bring all of your current medicines to any appointments with your healthcare provider. Also bring a complete list of medicines even those not taken for asthma. If you don't already have one, talk to your healthcare provider about developing your own Asthma Action Plan. A pneumococcal (pneumonia) vaccine and yearly flu shot (every fall) are recommended. Ask your doctor about this. When to seek medical advice Call your healthcare provider right away if any of these occur: Increased wheezing or shortness of breath Need to use your inhalers more often than usual without relief Fever of 100.4 F (38 C) or higher, or as directed by your healthcare provider Coughing up lots of dark-colored or bloody sputum (mucus) Chest pain with each breath If you use a peak flow meter as part of an Asthma Action Plan, and you are still in the yellow zone (50% to 80%) 15 minutes after using inhaler medicine. Call 911 Call 911 if any of the following occur Trouble walking or talking because of shortness of breath If you use a peak flow meter as part of an Asthma Action Plan and you are still in the red zone (less than 50%) 15 minutes after using inhaler medicine Lips or fingernails turning shah or blue [id number] [employer]. [address] [place] [address]. All rights reserved. This information is not intended as a substitute for professional medical care. Always follow your healthcare professional's instructions. Follow Up Care 03/26/2022 16:31:41 With:JEFFREY VASQUES DO Address: [address] [place] [phone] When:2-4 days [facility] 03-26-2022 Emergency department Discharge summary Discharge Instructions Thank you for allowing [facility] to assist you with your healthcare needs. The following is important discharge information regarding your hospital visit. Diagnosis from Today's Visit Asthma SOB - Shortness of breath What to Do Next Instructions from Your Care Team No qualifying data available. Post Acute Orders No qualifying data available. You Need to Schedule the Following Appointments Follow Up with JEFFREY VASQUES DO When Within 2-4 days Where: [address] [place] [phone] Allergies NKA Medications Please ask your primary doctor or pharmacist before taking any other medication not listed, including over the counter drugs, herbal medications, vitamins and or supplements as they may interact with your home medications. What How Much When Why Instructions Last Dose Changed azithromycin (azithromycin 250 mg oral tablet) Take two (2) tablets day 1-then one (1) tablet by mouth Every day Asthma Duration: 5 Days Printed Prescription Changed azithromycin (Zithromax Z-Lon 250 mg oral tablet) Take two (2) tablets day 1-then one (1) tablet by mouth Every day Acute URI Duration: 5 Days Changed predniSONE (predniSONE 20 mg oral tablet) 2 tab(s) by mouth Once a day Shortness of breath Difficulty breathing Duration: 5 Days Changed predniSONE (predniSONE 50 mg oral tablet) 1 tab(s) by mouth Once a day with a meal Asthma Duration: 5 Days Printed Prescription Unchanged albuterol (albuterol MDI (90 mcg/ inh) CFC free inhalation aerosol) 1 puff(s) by inhalation Every 6 hours as needed for as needed for wheezing Reactive airway disease Unchanged aspirin (aspirin 81 mg oral tablet, chewable) 1 tab(s) Chewed Once a day Unchanged atorvastatin (atorvastatin 20 mg oral tablet) 1 tab(s) by mouth Every day Unchanged calcium-vitamin D (calcium (as carbonate)-vitamin D 500 mg-10 mcg (400 intl units) oral tablet) 1 tab(s) by mouth Two (2) times a day Postmenopausal Unchanged dextromethorphan-promethazine (dextromethorphan-promethazine 15 mg-6.25 mg/ 5 mL oral syrup) 5 Milliliter by mouth Every 6 hours as needed for for cough Shortness of breath Difficulty breathing Duration: 7 Days Unchanged dilTIAZem (Dilt-XR 120 mg/ 24 hours oral capsule, extended release) 1 cap by mouth Once a day Unchanged DME (Blood Glucose Test Machine) See instructions Diabetes Diabetes Dispense 1 glucometer, UAD daily to to check blood sugar Unchanged DME (Blood Glucose Test Strips) See instructions Diabetes Dispense True Metrix glucose test strips, #100, UAD daily to test blood sugar Unchanged DME (DME MISCellaneous) See instructions Diabetes Dispense Alcohol Pads,100, UAD daily to check blood sugar Unchanged DME (Lancets) See instructions Diabetes Diabetes Dispense UltraFine lancets, #100, UAD daily to test blood sugar Unchanged doxycycline (doxycycline hyclate 100 mg oral capsule) 1 cap by mouth Two (2) times a day Shortness of breath Difficulty breathing Duration: 7 Days Unchanged dulaglutide (Trulicity Pen 1.5 mg/ 0.5 mL subcutaneous solution) 1.5 Milligram Subcutaneous Every week rotate injection sites. Unchanged flecainide (flecainide 100 mg oral tablet) 1 tab(s) by mouth Every 12 hours Atrial fibrillation Unchanged fluticasone-vilanterol (Breo Ellipta 100 mcg-25 mcg/ inh inhalation powder) 1 puff(s) by inhalation Every day Shortness of breath Difficulty breathing Unchanged metFORMIN (MetFORMIN (Eqv-Glucophage XR) 500 mg oral tablet, EXTENDED RELEASE) 4 tab(s) by mouth Once a day Diabetes Unchanged multivitamin with minerals (High Potency Multivitamin oral tablet) 1 tab(s) by mouth Every day Takes daily multivitamins Please take this list to your next doctor s visit. Bring all medications you take, including over the counter medications, herbals and other supplements with you to your doctor s visit. Patients and families are reminded to discard old lists and to update any records with all medication providers or retail pharmacies. Education Materials Asthma (Adult) Asthma is a disease where the medium and small air passages within the lung go into spasm and restrict the flow of air. Inflammation and swelling of the airways cause further blockage. During an acute asthma attack, these factors cause trouble breathing, wheezing, cough and chest tightness. An asthma attack can be triggered by many things. Common triggers include infections such as the common cold, bronchitis, and pneumonia. Irritants such as smoke or pollutants in the air, very cold air, emotional upset, and exercise can also trigger an attack. In many adults with asthma, allergies to dust, mold, pollen and animal dander can cause an asthma attack. Skipping doses of daily asthma medicine can also bring on an asthma attack. Asthma can be controlled using the proper medicines prescribed by your healthcare provider and avoiding exposure to known triggers including allergens and irritants. Home care Take prescribed medicine exactly at the times advised. If you need medicine such as from a hand held inhaler or aerosol breathing machine more than every 4 hours, contact your healthcare provider or seek immediate medical attention. If prescribed an antibiotic or prednisone, take all of the medicine as prescribed, even if you are feeling better after a few days. Don't smoke. Avoid being exposed to the smoke of others. Some people with asthma have worsening of their symptoms when they take aspirin and non-steroidal or fever-reducing medicines like ibuprofen and naproxen. Talk to your healthcare provider if you think this may apply to you. Follow-up care Follow up with your healthcare provider, or as advised. Always bring all of your current medicines to any appointments with your healthcare provider. Also bring a complete list of medicines even those not taken for asthma. If you don't already have one, talk to your healthcare provider about developing your own Asthma Action Plan. A pneumococcal (pneumonia) vaccine and yearly flu shot (every fall) are recommended. Ask your doctor about this. When to seek medical advice Call your healthcare provider right away if any of these occur: Increased wheezing or shortness of breath Need to use your inhalers more often than usual without relief Fever of 100.4 F (38 C) or higher, or as directed by your healthcare provider Coughing up lots of dark-colored or bloody sputum (mucus) Chest pain with each breath If you use a peak flow meter as part of an Asthma Action Plan, and you are still in the yellow zone (50% to 80%) 15 minutes after using inhaler medicine. Call 911 Call 911 if any of the following occur Trouble walking or talking because of shortness of breath If you use a peak flow meter as part of an Asthma Action Plan and you are still in the red zone (less than 50%) 15 minutes after using inhaler medicine Lips or fingernails turning shah or blue [phone] [employer]. [address] [place] [address]. All rights reserved. This information is not intended as a substitute for professional medical care. Always follow your healthcare professional's instructions. Additional Information VACCINATE! IT SAVES LIVES! Members of the community who have not yet received the COVID-19 vaccine and would like to receive it can visit one of [facility] vaccine clinics. There are many vaccine clinic locations within the [facility]. For locations and available times, please visit [email or web address]. It is important to note that some COVID mobile vaccine clinics are held outdoors and may be canceled in rainy or stormy conditions. To learn more about pediatric vaccinations (ages 5-11), we invite you to visit the [facility] webpage. [email or web address] To learn more about the COVID-19 vaccine, we invite you to visit the [facility] website for a list of frequently asked questions. [email or web address] [facility] [employer] Patient Portal Access Instructions: Stay connected with your healthcare team and access your personal medical information anytime with the [facility] [employer] Patient Portal. If you would like a full copy of your medical records please contact the [facility] Medical Records Department Tuesday through Tuesday between 8a.m. and 4:30p.m. Please follow the directions below to access the portal: 1.Access the email account you provided upon registration to the [facility].2.Look for an invitation email from [facility].3.Open the email and access the invitation link: Accept Invitation to [facility]4.Fill in the required kellogg to create your account. Sign into [email or web address] with your username and password that you created in the above steps to stay up to date. You can then view a summary of results, a summary of your visits, and the ability to download your summaries to your computer or send the information securely to a physician. Remember that your healthcare information is confidential, so carefully consider who you will allow to register on the [facility] Patient Portal for access to your information. You can also access the [facility] Patient Portal on the crossvertise kenzie. Simply click on Health Records under Health Data and then click on the [employer] logo. HOW TO SAFELY DISPOSE OF PRESCRIPTION MEDICATIONS Please use one of the following methods to safely dispose of your unused medications. 1.Use a drug disposal kit: the drug disposal pouch allows you to safely discard your old and unused drugs. Ask your nurse to give you one when you are discharged.2.Visit a local take-back location: Many local pharmacies and police departments have programs that collect old and unwanted prescription drugs. Call your local pharmacy or go to [email or web address]/[email or web address] to find one close to you.3.Make use of household items: Use cat litter or old coffee grounds to dispose medications if other options are not available. Mix your drugs with these household products, seal them in an airtight container and throw it into the garbage. Call [facility]: [phone] to be sure your drugs can be disposed of in this way. Some medicines may require a different approach.4.Never flush your medications down the toilet. IF YOU HAVE BEEN PRESCRIBED AN OPIOIDS FOR PAIN If you have been prescribed an opioid (such as hydrocodone, oxycodone or morphine), it is critical to understand the possible side effects and risks of opioid pain medications. Even when taken as directed, opioids can have several side effects including: Tolerance, meaning you might need to take more of a medication for the same pain relief. Nausea, vomiting and/or constipation. Sleepiness, dizziness, dry mouth, confusion, depression or itching. Physical dependence, meaning you have withdrawal symptoms when a medication is stopped ? this can develop within a few days. KNOW YOUR RESPONSIBILITIES It is important to know exactly how much and how often to take the opioid pain medications you are prescribed. Never take opioids in higher amounts or more often than prescribed. Do not combine opioids with alcohol or other drugs that cause drowsiness, such as benzodiazepines, also known as benzos, including diazepam and alprazolam, muscle relaxants or sleep aids. Never sell or share prescription opioids. This is illegal. Store opioids in a secure place and out of reach of others (including children, family, friends and visitors). The last page(s) of this document has been signed and retained as a CHART COPY Signatures Patient Education Materials Asthma, Acute (Adult) Medication Leaflets My discharge plan and instructions have been reviewed and explained to me and I,FELIX MALHOTRA understand my current condition and have read and understand these discharge instructions. I have received a written copy of the plan/instructions. If I have questions, I am aware that I should contact my doctor. 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 No focal pulmonary consolidation, pneumothorax, or large pleural effusion visualized. No acute osseous abnormalities identified. The spine is degenerative. IMPRESSION: No focal consolidation. I have personally reviewed the images of this examination and agree with the resident's findings and interpretation. Interpreted by: Gt Sheffield Preliminary Report By: Júnior Dent Electronically signed By Gt Sheffield Dictated Date: 03/26/2022 5:58:31 PM Prelim Date: 03/26/2022 6:00:14 PM Sign Date: 03/26/2022 6:02:47 PM Ordering Provider: [facility] 03-26-2022 Note ORIGINAL EXAMINATION: ONE XRAY VIEW OF THE CHEST03/26/2022 5:56 pm COMPARISON: 08/02/2020 HISTORY: ORDERING SYSTEM PROVIDED HISTORY: Reason for Exam: SOB/cough/fever FINDINGS: The cardiomediastinal silhouette is within normal limits. No focal pulmonary consolidation, pneumothorax, or large pleural effusion visualized. No acute osseous abnormalities identified. The spine is degenerative. IMPRESSION: No focal consolidation. I have personally reviewed the images of this examination and agree with the resident's findings and interpretation. Interpreted by: Gt Sheffield Preliminary Report By: Júnior Dent Electronically signed By Gt Sheffield Dictated Date: 03/26/2022 5:58:31 PM Prelim Date: 03/26/2022 6:00:14 PM Sign Date: 03/26/2022 6:02:47 PM [facility] Future Appointments Appointment Date:03/22/2022 10:15:00 AM Scheduled Provider: Location:[facility] Appointment Type:CV OV Appointment Date:05/28/2022 01:00:00 PM Scheduled Provider: Location:[facility] Appointment Type:DB Diabetic Individual Visit Appointment Date:06/23/2022 01:30:00 PM Scheduled Provider:JEFFREY VASQUES DO Location:[facility] Appointment Type:PC OV [facility] Evaluation + Plan note Future Appointments Appointment Date:05/28/2022 01:00:00 PM Scheduled Provider: Location:[facility] Appointment Type:DB Diabetic Individual Visit Appointment Date:06/23/2022 01:30:00 PM Scheduled Provider:JEFFREY VASQUES DO Location:[facility] Appointment Type:PC OV Appointment Date:03/24/2023 10:15:00 AM Scheduled Provider: Location:[facility] Appointment Type:CV OV Future Scheduled TestsBasic Metabolic Panel 9/16/22Thyroid Stimulating Hormone 03/26/22Free T4 03/26/22Complete Blood Count 03/26/22XR Chest 2 Views (PA & Lateral) 03/26/22 [facility] Evaluation + Plan note Future Appointments Appointment Date:08/25/2022 01:00:00 PM Scheduled Provider: Location:[facility] Appointment Type:DB Diabetic Individual Visit (AOH) Appointment Date:12/29/2022 01:30:00 PM Scheduled Provider:JEFFREY VASQUES DO Location:[facility] Appointment Type:PC OV Appointment Date:03/24/2023 10:15:00 AM Scheduled Provider: Location:[facility] Appointment Type:CV OV Future Scheduled TestsBasic Metabolic Panel 03/26/22Thyroid Stimulating Hormone 03/26/22Free T4 03/26/22Complete Blood Count 03/26/22XR Chest 2 Views (PA & Lateral) 03/26/22 [facility] Hospital course Narrative No data available for this section [facility] Hospital Discharge instructions No data available for this section [facility] Note BENTON LEVIN MD: SIGN, VERIFY Event Display: EKG [ED AO] - CV Authored Date: [id number] [facility] Progress note No data available for this section [facility] Summary Purpose Family History No Family History Records FoundNo Family History Records FoundNo Family History Records FoundNo Family History Records Found Advance Directives No Advanced Directives Records FoundNo Advanced Directives Records FoundNo Advanced Directives Records FoundNo Advanced Directives Records Found Additional Source Comments INFORMATION SOURCE (unrecogn ized section and content) DATE CREATED AUTHOR AUTHOR'S ORGANIZ ATION 01/03/2018 [facility] DATE CREATED AUTHOR AUTHOR'S ORGANIZ ATION 09/06/2020 [facility] DATE CREATED AUTHOR AUTHOR'S ORGANIZ ATION 07/17/2023 [facility] Care Team (unrecognized sect ion and content) Personnel Name: LAVERNE, JEFFREY Address: [address] [place] [address] Care Team (unrecognized sect ion and content) Care Team Personnel Name: JEFFREY VASQUES DO Position: P4 Physician - Primary Care Med Service: Active Provider Member Role: Primary Care Physician Address: Address: [address] [place] [address] Care Team Related Persons Name: HOLLIS DRAPER Care Team Personnel Name: JEFFREY VASQUES DO Position: P4 Physician - Primary Care Member Role: Primary Care Physician Address: Address: [address] [place] [address] Care Team Related Persons Name: HOLLIS DRAPER FOR RECORDS PERTAINING TO PATIENTS WHO ARE OR HAVE BEEN ENROLLED IN A CHEMICAL DEPENDENCY/SUBSTANCEABUSE PROGRAM, SOME INFORMATION MAY BE OMITTED. This clinical summary was aggregated from multiple sources. Caution should be exercised in using it in the provision of clinical care. This summary normalizes information from multiple sources, and as a consequence, information in this document may materially change the coding, format and clinical context of patient data. In addition, data may be omitted in some cases. CLINICAL DECISIONS SHOULD BE BASED ON THE PRIMARY CLINICAL RECORDS. [facility] [employer] [facility]. provides no warranty or guarantee of the accuracy or completeness of information in this document.
--- NOTE | 2023-07-18 03:44 | CT_ITS ---
INDICATION: abd pain EXAMINATION: CT ABDOMEN AND PELVIS WITH CONTRAST - CT Abdomen And Pelvis W/ Contrast Injection TECHNIQUE: Helically acquired images were obtained of the abdomen and pelvis following IV contrast. A radiation dose optimization technique was used for this scan. IV Contrast dosage and agent: November 16, 2017 Oral contrast: None. COMPARISON: None. FINDINGS: LOWER CHEST: Lung bases are clear. No cardiomegaly or pericardial effusion. LIVER: Homogeneous. No focal mass. GALLBLADDER AND BILIARY TREE: Cholecystectomy. No intra- or extrahepatic biliary ductal dilation. PANCREAS: No focal cystic or solid mass. SPLEEN: Calcified sequela of prior granulomatous disease. ADRENAL GLANDS: No nodules. KIDNEYS AND URETERS: Normal renal size and position. No hydronephrosis. PERITONEUM: No ascites or free air. No other fluid collection. BOWEL: No acute gastric finding. No small bowel distention or focal wall thickening. Normal appendix. Large proximal to mid colonic stool burden. Mid descending colon wall inflammation and mild surrounding edema with inflamed diverticulum. Trace dependent fluid along left posterior paracolic gutter. No abscess. No free air LYMPH NODES: No enlarged mesenteric or retroperitoneal lymph nodes. VESSELS: Aorta is non-dilated. URINARY BLADDER: Unremarkable. REPRODUCTIVE ORGANS: Absent uterus. No evidence of adnexal mass.. ABDOMINAL WALL: No discrete abdominal or pelvic wall hernia. BONES: No lytic or blastic abnormality. Lower lumbar multilevel facet arthropathy. CT/Abdomen/Pelvis W IV Cont ONLY IMPRESSION: Acute uncomplicated diverticulitis along the mid descending colon. Follow-up colonoscopy or CT is recommended 6 weeks after treatment to exclude underlying neoplasm. Splenic sequela of prior granulomatous disease. Cholecystectomy Electronically Signed: Robinson Cheung MD at 5:03 EST ,
[2023-07-18] MEDS: 0.9% Normal Saline (1000mL) 1,000 ML 999 ML IV (03:56)
[2023-07-18] MEDS: Ondansetron 4 MG/2 ML Vial IV (03:57)
[2023-07-18] MEDS: Morphine 4 MG/ML Syringe IV (03:57)
[2023-07-18 04:03] LABS: Absolute Lymphocyte Count 3.55 X10^3/uL (0.83-4.51); Absolute Neutrophil Count 11.7 X10^3/uL (2.0-7.7); Basophil# 0.05 X10^3/uL; Basophil% 0.3 % (0-1); Eosinophil# 0.27 X10^3/uL; Eosinophils% 1.6 % (0-5); Hematocrit 44.7 % (37-47); Hemoglobin 14.9 g/dL (12.0-15.0); Lymphocyte # 3.55 X10^3/ul (0.83-4.51); Lymphocyte % 21.7 % (19-41); Mean Corp Hgb Conc 33.3 g/dL (32-36); Mean Corpuscular Hgb 28.7 pg (27.0-32.0); Mean Platelet Vol. 11.1 fl (6.2-12.0); Monocyte# 0.76 X10^3/uL; Monocyte% 4.6 % (0-10); NRBC Flagged by Analyzer 0 % (0-5); Neutrophil % 71.6 % (47-70); Platelet Count 332 K/mm3 (150-450); RBC Distribution Width CV 14.1 % (11.6-14.6); RBC Distribution Width SD 44.4 fl (35.1-43.9); White Blood Count 16.4 K/mm3 (4.4-11.0)
[2023-07-18 04:19] LABS: AST(SGOT) 16 U/L (15-37); Alanine Aminotransfer ALT/SGPT 21 U/L (13-56); Albumin, Serum 3.5 g/dL (3.2-5.0); Alkaline Phosphatase 53 U/L (45-117); Anion Gap 5 (5-15); BUN 17 mg/dL (7-18); BUN/Creat Ratio 18.3 RATIO (10-20); Bilirubin, Direct 0.11 mg/dL (0.00-0.30); Calcium,Total 8.5 mg/dL (8.5-10.1); Chloride 109 mmol/L (98-107); Creatinine, Serum 0.93 mg/dL (0.55-1.02); EST Glomerular Filtration Rate 66 mL/min (>60); Est Glom Filt Rate - Afr Amer 80 mL/min (>60); Estimated Creatinine Clearance 56.54 ml/min; Globulin 3.9 g/dL (2.2-4.2); Glucose 170 mg/dL (74-106); Lipase 56 U/L (13-75); Potassium 4.2 mmol/L (3.5-5.1); Protein, Total 7.4 g/dL (6.4-8.2); Sodium Level 140 mmol/L (136-145)
[2023-07-18 04:24] LABS: Lactic Acid 1.1 mmol/L (0.4-1.9)
--- NOTE | 2023-07-18 05:14 | EDS_ITS ---
HPI History of Present Illness Chief Complaint: Abd Pain Informant: patient Narrative Narrative: Patient is a 57-year-old female with past medical history of paroxysmal atrial fibrillation diabetes and hypertension. She states that she is also had diverticulitis in the past but has been multiple years since a flareup . She states that she noted some pain in the left sided abdomen around 9 PM and since that time pain is increased in severity to the point where it is led to a few bouts of nausea and vomiting and she is also had mild constipation. She denies any known sick contacts any fevers or chills any dysuria or hematuria was concerned she now has an intestinal infection once again she presents for evaluation [facility] Medical History Afib Asthma Cancer Diabetes Diverticulitis Hypertension Home Medications albuterol sulfate 90 mcg/actuation aerosol inhaler 1 puff inhalation Q6H PRN PRN Wheezing 01/25/21 [History Last Taken Unknown] atorvastatin 20 mg tablet 20 mg PO DAILY 01/25/21 [History Last Taken Unknown] diltiazem HCl 240 mg capsule,extended release 24 hr 240 mg PO DAILY 01/25/21 [History Last Taken Unknown] dulaglutide 1.5 mg/0.5 mL subcutaneous pen injector (Trulicity) 3 mg subcut QWEEK 01/25/21 [History Last Taken Unknown] flecainide 100 mg tablet 100 mg PO BID 09/23/21 [History Last Taken Unknown] calcium carbonate 500 mg-vitamin D3 10 mcg (400 unit) tablet 1 tab PO 02/21/22 [History Last Taken Unknown] amoxicillin 875 mg-potassium clavulanate 125 mg tablet 1 tab PO BID 10 days #20 tabs 07/18/23 [Rx Last Taken Unknown] hydrocodone-acetaminophen 5-325mg 5mg-325mg 1 tab PO Q6H PRN PRN Pain 3 days #12 TABLETS 07/18/23 [Rx Last Taken Unknown] Allergy/AdvReac Type Severity Reaction Status Date / Time No Known Allergies Allergy Verified 07/18/23 03:03 Surgical History History of cataract surgery History of cholecystectomy History of hysterectomy Social History Smoking Status: Current every day smoker tobacco type: cigarettes alcohol intake: current alcohol intake frequency: a few times a week ROS ROS ED Constitutional Constitutional ED: Denies chills or fever(s) ENT ENT ED: Denies sore throat Cardiovascular Cardiovascular: Denies chest pain Respiratory/Chest Respiratory/Chest: Denies cough or dyspnea Gastrointestinal Gastrointestinal: Reports abdominal pain, constipation, nausea and vomiting; Denies diarrhea Genitourinary Genitourinary ED: Denies dysuria or hematuria Musculoskeletal Musculoskeletal: Denies back pain or myalgias Integumentary Denies rash Neurologic Neurologic: Denies headache(s) Hematologic/Lymphatic Hematologic/Lymphatic: Denies easy bleeding or easy bruising EXAM Physical Exam Const Vital Signs: 07/18/23 03:03 Temperature 98.1 F Temperature Source Temporal Pulse Rate 81 Respiratory Rate 16 Blood Pressure 197/93 H Blood Pressure Mean 127 Pulse Ox 98 Oxygen Delivery Method Room Air Positive well nourished, well developed and obese General Appearance ED: well developed Nutritional Appearance: obese HEENT HEENT Narrative: Normocephalic atraumatic Eyes PERRL and EOMs intact bilaterally General Eye ED: Negative for scleral icterus Neck supple Neck Narrative: No nuchal rigidity or meningeal signs Resp normal respiratory effort and clear to auscultation bilaterally Cardio regular rate and regular rhythm GI non-distended GI Narrative: Abdomen is soft and nondistended with hypoactive bowel sounds. There is pain with palpation and mild guarding in the left lower quadrant. No increased tympany. No rigidity or pulsatile mass. No peritoneal signs. Auscultation: hypoactive bowel sounds Palpation: soft Back/Spine no CVA tenderness Extremity normal to inspection Neuro oriented x3, CN's II-XII intact bilaterally and no sensory deficits noted Sensorium / Orientation: alert Motor Exam: strength 5/5 throughout Psych mental status grossly normal Skin no rashes or lesions noted General Skin Exam: Negative for jaundice MDM MDM MDM Narrative Medical decision making narrative: Patient presented to the ER mildly hypertensive otherwise with stable vitals. She reported pain in the left lower abdomen without trauma. Differential diagnosis is for diverticulitis versus kidney stone versus constipation versus obstruction. Secondary to his basic blood work was obtained as well as a CT scan with IV contrast. Labs showed leukocytosis at 16.4 consistent with an inflammatory or infectious process but otherwise no clinically significant finding. CT scan confirmed mild uncomplicated diverticulitis without perforation abscess or obstruction. On reevaluation she reports feeling better after receiving medication in the ER. At this time as she does not have obstruction perforation or abscess and workup does not reveal findings concerning for septicemia she can be placed on antibiotics and discharged home History & Record Review Discussion w/independent historian: Patient Lab Data Attestation: I reviewed the patient's lab results. Labs: Laboratory Results - last 24 hr 07/18/23 03:11 WBC 16.4 H RBC 5.20 Hgb 14.9 Hct 44.7 MCV 86.0 MCH 28.7 MCHC 33.3 RDW Std Deviation 44.4 H RDW Coeff of Chloe 14.1 Plt Count 332 MPV 11.1 Immature Gran % (Auto) 0.200 Neut % (Auto) 71.6 H Lymph % (Auto) 21.7 Blaine % (Auto) 4.6 Eos % (Auto) 1.6 Baso % (Auto) 0.3 Absolute Neuts (auto) 11.7 H Absolute Lymphs (auto) 3.55 Nucleated RBC % 0 Sodium 140 Potassium 4.2 Chloride 109 H Carbon Dioxide 26.0 Anion Gap 5 BUN 17 Creatinine 0.93 Estim Creat Clear Calc 56.54 Est GFR (MDRD) Af Amer 80 Est GFR (MDRD) Non-Af 66 BUN/Creatinine Ratio 18.3 Glucose 170 H Lactic Acid 1.1 Calcium 8.5 Total Bilirubin 0.40 Direct Bilirubin 0.11 AST 16 ALT 21 Alkaline Phosphatase 53 Total Protein 7.4 Albumin 3.5 Globulin 3.9 Lipase 56 Radiography Diagnostic Testing: Clinical Impression(s) from Imaging Studies Abdomen/Pelvis CT 07/18/23 03:44 IMPRESSION: Acute uncomplicated diverticulitis along the mid descending colon. Follow-up colonoscopy or CT is recommended 6 weeks after treatment to exclude underlying neoplasm. Splenic sequela of prior granulomatous disease. Cholecystectomy Electronically Signed: Robinson Cheung MD at 5:03 EST , Discharge Plan Triage Chief Complaint: Abd Pain ED Provider: Myke Gaspar Dx/Rx/DC Orders Clinical Impression: Diverticulitis, Non-insulin dependent diabetes mellitus, Paroxysmal A-fib, Hypertension Instructions: ED Diverticulitis Prescriptions: New amoxicillin-pot clavulanate 875-125 mg tablet 1 tab PO BID 10 Days Qty: 20 0RF hydrocodone-acetaminophen 5-325 mg tablet 1 tab PO Q6H PRN PRN (Reason: Pain) 3 Days Qty: 12 0RF No Action atorvastatin 20 mg tablet 20 mg PO DAILY Patient Comments: TAKE 1 TABLET BY MOUTH EVERY DAY diltiazem HCl 240 mg capsule,extended release 24hr 240 mg PO DAILY Patient Comments: TAKE 1 CAPSULE BY MOUTH EVERY DAY albuterol sulfate 90 mcg/actuation HFA aerosol inhaler 1 puff INHALATION Q6H PRN PRN (Reason: Wheezing) Patient Comments: INHALE ONE (1) PUFF BY MOUTH EVERY 6 HOURS NEEDED FOR WHEEZING Trulicity 1.5 mg/0.5 mL pen injector 3 mg SUBCUT QWEEK Patient Comments: INJECT 0.5 ML SUBCUTANEOUSLY ONCE WEEKLY. ROTATE INJECTION SITES. TO REPLACE THE 0.75 MG DOSE. flecainide 100 mg tablet 100 mg PO BID Patient Comments: TAKE 1 TABLET BY MOUTH EVERY 12 HOURS calcium carbonate-vitamin D3 500 mg-10 mcg (400 unit) tablet 1 tab PO Primary Care Provider: Demarcus Vasques Referrals: Demarcus Vasques DO [Primary Care Provider] - Activity Restrictions/Additional Instructions: Your workup showed uncomplicated diverticulitis. Take your antibiotic as directed and this will resolve the infection typically after 48 to 72 hours. If you have any further concerns or worsening of symptoms please return to the ER for repeat evaluation Disposition Disposition: Home, Self Care
[2023-07-18] MEDS: Amox/Clavulanate 875 MG Tablet PO (05:24)
[2023-07-18 05:28] VITALS: BP 152/79; PULSE 74; RESP 17; O2SAT 97
== END 2023-07-18 05:29 | disposition home or self-care (01) ==
PROVIDERS: Emergency Provider Emergency Medicine; PCP Preventive Medicine Occupational Medicine; Visit Provider Emergency Medicine
DX: K57.32 Diverticulitis of large intestine without perforation or abscess without bleeding (principal); I48.0 Paroxysmal atrial fibrillation; E11.9 Type 2 diabetes mellitus without complications; I10 Essential (primary) hypertension; Z79.899 Other long term (current) drug therapy; Z79.85 Long-term (current) use of injectable non-insulin antidiabetic drugs; Z85.9 Personal history of malignant neoplasm, unspecified; Z90.49 Acquired absence of other specified parts of digestive tract; Z90.710 Acquired absence of both cervix and uterus; F17.210 Nicotine dependence, cigarettes, uncomplicated
CPT/HCPCS: 74177; 80048; 80076; 83605; 83690; 85025; 96361; 96374; 96375; 99283; J7030; Q9967; A4216; J2405

== ENCOUNTER 2023-10-27 03:10 | Emergency (ER) | payer MEDICARE, MEDICAID, SELFPAY ==
[2023-10-27 03:11] VITALS: BP 115/96; PULSE 76; RESP 20; TEMP 36.3; O2SAT 96; BMI 46.0
--- NOTE | 2023-10-27 03:24 | RAD_ITS ---
EXAM: XR CHEST, 1 VIEW CLINICAL INDICATION: dyspnea TECHNIQUE: Frontal view of the chest. COMPARISON: Single view chest 02/21/2022 FINDINGS: LUNGS AND PLEURAL SPACES: Unremarkable. No consolidation or edema. No pneumothorax. No effusion. HEART: Unremarkable. Cardiac silhouette not enlarged. MEDIASTINUM: Central airways and mediastinal contour are unremarkable. BONES/JOINTS: Unremarkable. No acute fracture. SOFT TISSUES: Unremarkable. RAD/Chest 1 View (Portable) IMPRESSION: No radiographic evidence of acute cardiopulmonary disease. Electronically Signed: Noel Livingston MD at 4:37 EDT ,
[2023-10-27] MEDS: MethylPREDNISolone 125 MG/2 ML Vial IV (03:31)
[2023-10-27 03:40] VITALS: PULSE 67; RESP 12
[2023-10-27] MEDS: Ipratropium/Albuterol Sulfate 3 ML AMPUL.NEB INHALATION ×2 (03:40→03:41)
[2023-10-27] MEDS: Albuterol 2.5 MG/3 ML VIAL.NEB. INHALATION (03:40)
[2023-10-27 03:47] VITALS: O2SAT 95
--- NOTE | 2023-10-27 03:50 | EDS_ITS ---
HPI History of Present Illness Chief Complaint: Asthma Informant: patient Narrative Narrative: Patient is a 58-year-old female with past medical history of asthma as well as obt-[id number]-[id number] diabetes hypertension and paroxysmal atrial fibrillation. Patient reports that throughout the day she has had increased shortness of breath that does not seem to be responding to her albuterol inhaler. She states she has had coughing spells with this and she denies any fevers chills or known sick contacts. She states her asthma is relatively well-controlled and denies any need for admission or intubation secondary to it. However as she cannot sleep this evening secondary to persistent wheeze and shortness of breath she presents for evaluation [facility] Medical History Afib Asthma Cancer Diabetes Diverticulitis Hypertension Home Medications albuterol sulfate 90 mcg/actuation aerosol inhaler 1 puff inhalation Q6H PRN PRN Wheezing 01/25/21 [History Last Taken Unknown] atorvastatin 20 mg tablet 20 mg PO DAILY 01/25/21 [History Last Taken Unknown] diltiazem HCl 240 mg capsule,extended release 24 hr 240 mg PO DAILY 01/25/21 [History Last Taken Unknown] dulaglutide 1.5 mg/0.5 mL subcutaneous pen injector (Trulicity) 3 mg subcut QWEEK 01/25/21 [History Last Taken Unknown] flecainide 100 mg tablet 100 mg PO BID 09/23/21 [History Last Taken Unknown] calcium carbonate 500 mg-vitamin D3 10 mcg (400 unit) tablet 1 tab PO 02/21/22 [History Last Taken Unknown] amoxicillin 875 mg-potassium clavulanate 125 mg tablet 1 tab PO BID 10 days #20 tabs 07/18/23 [Rx Last Taken Unknown] hydrocodone-acetaminophen 5-325mg 5mg-325mg 1 tab PO Q6H PRN PRN Pain 3 days #12 TABLETS 07/18/23 [Rx Last Taken Unknown] prednisone 20 mg tablet 20 mg PO DAILY 5 days #5 tabs 10/27/23 [Rx Last Taken Unknown] Allergy/AdvReac Type Severity Reaction Status Date / Time No Known Allergies Allergy Verified 10/27/23 03:14 Surgical History History of cataract surgery History of cholecystectomy History of hysterectomy Social History Smoking Status: Current every day smoker tobacco type: cigarettes alcohol intake: current alcohol intake frequency: a few times a week ROS ROS ED Constitutional Constitutional ED: Denies chills or fever(s) Eyes Eyes: Denies change in vision ENT ENT ED: Denies rhinorrhea or sore throat Cardiovascular Cardiovascular: Denies chest pain Respiratory/Chest Respiratory/Chest: Reports cough and dyspnea Gastrointestinal Gastrointestinal: Denies abdominal pain, diarrhea, nausea or vomiting Genitourinary Genitourinary ED: Denies dysuria Musculoskeletal Musculoskeletal: Denies myalgias Integumentary Denies rash Neurologic Neurologic: Denies headache(s) Hematologic/Lymphatic Hematologic/Lymphatic: Denies easy bleeding or easy bruising EXAM Physical Exam Const Vital Signs: 10/27/23 03:11 10/27/23 03:47 10/27/23 03:40 Temperature 97.3 F L Temperature Source Temporal Pulse Rate 76 67 Respiratory Rate 20 H 12 Respiratory Effort Short of Breath Labored Respiratory Pattern Tachypnea Blood Pressure 115/96 H Blood Pressure Mean 102 Pulse Ox 96 Oxygen Delivery Method Room Air Room Air Positive well nourished and well developed General Appearance ED: well developed; Negative for pallor HEENT HEENT Narrative: No tongue or lip swelling no oral lesions no airway edema or compromise No secondary changes in the posterior pharynx to suggest infection Eyes PERRL and EOMs intact bilaterally General Eye ED: Negative for scleral icterus Neck supple and no JVD Chest Wall palpation of chest normal Chest Narrative: No bony deformity or crepitance Resp Resp Narrative: Patient has tachypnea with accessory muscle use. Breath sounds are diminished throughout with diffuse inspiratory and expiratory wheeze No nasal flaring or retractions noted No stridor present Cardio regular rate and regular rhythm Rate: other Other Details: Heart is regular rate and rhythm Radial and carotid pulses are equal and symmetric Extremity normal to inspection Extremity Narrative: No asymmetric edema no pitting edema negative Homans' sign bilaterally Neuro oriented x3, CN's II-XII intact bilaterally and no sensory deficits noted Sensorium / Orientation: alert Motor Exam: strength 5/5 throughout Psych mental status grossly normal Skin no rashes or lesions noted, no wounds and skin turgor normal General Skin Exam: Negative for jaundice or pallor MDM MDM MDM Narrative Medical decision making narrative: Patient arrived to the ER tachypneic but overall satting in the mid to high 90s on room air. Differential diagnosis is for asthma exacerbation secondary to viral infection such as COVID versus influenza versus RSV versus allergen/pneumonitis versus pneumonia or pneumothorax. Based on her tachypnea with diminished breath sounds and inspiratory and expiratory wheezes this is most likely asthma exacerbation and she was given 2 DuoNeb and 1 albuterol breathing treatments as well as 125 mg of Solu-Medrol. Following the steroid and breathing medication she had improvement of her breath sounds and improvement in her work of breathing. Chest x-ray confirmed no obvious lung pathology such as pneumonia pneumothorax or pleural effusion. She was watched in the ER and her symptoms have improved as time is passed. Therefore this time as she is not in respiratory distress her pulse ox is in the mid to high 90s on room air and she is not requiring supplemental oxygen I do not feel there is need for further workup and she is otherwise safe for discharge with symptomatic care. History & Record Review Discussion w/independent historian: Patient Radiography Diagnostic Testing: Clinical Impression(s) from Imaging Studies Chest X-Ray 10/27/23 03:24 IMPRESSION: No radiographic evidence of acute cardiopulmonary disease. Electronically Signed: Noel Livingston MD at 4:37 EDT , Chest x-ray as interpreted by the emergency medicine physician reveals no acute infiltrate pneumothorax or pleural effusion Discharge Plan Triage Chief Complaint: Asthma ED Provider: Myke Gaspar Dx/Rx/DC Orders Clinical Impression: Asthma exacerbation, Non-insulin dependent diabetes mellitus, Hypertension Instructions: Asthma Action Plan Prescriptions: New prednisone 20 mg tablet 20 mg PO DAILY 5 Days Qty: 5 0RF No Action atorvastatin 20 mg tablet 20 mg PO DAILY Patient Comments: TAKE 1 TABLET BY MOUTH EVERY DAY diltiazem HCl 240 mg capsule,extended release 24hr 240 mg PO DAILY Patient Comments: TAKE 1 CAPSULE BY MOUTH EVERY DAY albuterol sulfate 90 mcg/actuation HFA aerosol inhaler 1 puff INHALATION Q6H PRN PRN (Reason: Wheezing) Patient Comments: INHALE ONE (1) PUFF BY MOUTH EVERY 6 HOURS NEEDED FOR WHEEZING Lulaity 1.5 mg/0.5 mL pen injector 3 mg SUBCUT QWEEK Patient Comments: INJECT 0.5 ML SUBCUTANEOUSLY ONCE WEEKLY. ROTATE INJECTION SITES. TO REPLACE THE 0.75 MG DOSE. flecainide 100 mg tablet 100 mg PO BID Patient Comments: TAKE 1 TABLET BY MOUTH EVERY 12 HOURS calcium carbonate-vitamin D3 500 mg-10 mcg (400 unit) tablet 1 tab PO amoxicillin-pot clavulanate 875-125 mg tablet 1 tab PO BID 10 Days Qty: 20 0RF hydrocodone-acetaminophen 5-325 mg tablet 1 tab PO Q6H PRN PRN (Reason: Pain) 3 Days Qty: 12 0RF Primary Care Provider: Demarcus Vasques Referrals: Demarcus Vasques DO [Primary Care Provider] - Activity Restrictions/Additional Instructions: Please continue your albuterol every 4-6 hours as needed for breakthrough shortness of breath or wheeze. Also begin taking your Advair once a day in the morning for the next 7 days as this will help reduce exacerbation. Use the steroid as directed as well to reduce inflammation and shortness of breath. Return to the ER if you have any further concerns or worsening of symptoms Disposition Disposition: Home, Self Care
[2023-10-27 05:08] VITALS: BP 148/63; PULSE 74; RESP 17; TEMP 36.6; O2SAT 95
== END 2023-10-27 05:12 | disposition home or self-care (01) ==
PROVIDERS: Emergency Provider Emergency Medicine; PCP Preventive Medicine Occupational Medicine; Visit Provider Emergency Medicine
DX: J45.901 Unspecified asthma with (acute) exacerbation (principal); I48.0 Paroxysmal atrial fibrillation; E11.9 Type 2 diabetes mellitus without complications; I10 Essential (primary) hypertension; Z79.899 Other long term (current) drug therapy; Z79.85 Long-term (current) use of injectable non-insulin antidiabetic drugs; Z90.49 Acquired absence of other specified parts of digestive tract; Z90.710 Acquired absence of both cervix and uterus; F17.210 Nicotine dependence, cigarettes, uncomplicated
CPT/HCPCS: 71045; 94640; 99283

== ENCOUNTER 2023-10-27 12:52 | Emergency (ER) | payer MEDICARE, MEDICAID, SELFPAY ==
[2023-10-27 12:53] VITALS: BP 207/88; PULSE 99; RESP 20; TEMP 37; O2SAT 97; BMI 46.4
[2023-10-27] MEDS: 0.9% Normal Saline (1000mL) 1,000 ML 1000 ML IV (13:24)
[2023-10-27 14:20] LABS: Bedside Glucose 366 mg/dL (74-106)
--- NOTE | 2023-10-27 14:59 | EX.ED.DYSGE1 ---
HPI <Modesta Alvarez RN - Last Filed: 10/27/23 15:17> History of Present Illness Chief Complaint: Hyperglycemia Onset/Context/Timing Onset: Today Context: Sudden Onset Timing: Continuous Current Severity: Mild Maximum Severity: Mild Worsened by: Nothing Relieved by: Nothing Associated Symptoms Associated Symptoms: Increased thirst, fuzzy in my head, blurred vision Narrative Narrative: Patient is a 58-year-old female with past medical history significant for asthma, hypertension, and diabetes who presents to the ED today for hyperglycemia. Patient was seen earlier this morning for an asthma exacerbation, given Solu-Medrol, and prescribed prednisone. She went home and took a nap. Upon awakening, she started with increased thirst, blurred vision and feeling fuzzy in my head. She then took her blood sugar which was 329. She reports taking a fasting blood sugar every morning with it ranging from 112 - 132. She reports this feels similar to other episodes of hyperglycemia.She does take Trulicity 3 mg once a week for diabetes. She denies polyuria and polyphagia. She denies chest pain, shortness of breath, nausea, vomiting, and diarrhea. She does report her shortness of breath has dramatically improved since being seen in the ED earlier today. Prior similar symptoms: Yes Recent Illness/Hospitalization: Yes PFSH <Modesta Alvarez RN - Last Filed: 10/27/23 15:17> [facility] Medical History Afib Asthma Cancer Diabetes Diverticulitis Hypertension Home Medications albuterol sulfate 90 mcg/actuation aerosol inhaler 1 puff inhalation Q6H PRN PRN Wheezing 01/25/21 [History Last Taken Unknown] atorvastatin 20 mg tablet 40 mg PO DAILY 01/25/21 [History Last Taken Unknown] diltiazem HCl 240 mg capsule,extended release 24 hr 240 mg PO DAILY 01/25/21 [History Last Taken Unknown] dulaglutide 1.5 mg/0.5 mL subcutaneous pen injector (Trulicity) 3 mg subcut QWEEK 01/25/21 [History Last Taken Unknown] flecainide 100 mg tablet 100 mg PO BID 09/23/21 [History Last Taken Unknown] calcium carbonate 500 mg-vitamin D3 10 mcg (400 unit) tablet 1 tab PO 02/21/22 [History Last Taken Unknown] hydrocodone-acetaminophen 5-325mg 5mg-325mg 1 tab PO Q6H PRN PRN Pain 3 days #12 TABLETS 07/18/23 [Rx Last Taken Unknown] prednisone 20 mg tablet 20 mg PO DAILY 5 days #5 tabs 10/27/23 [Rx Last Taken Unknown] Allergy/AdvReac Type Severity Reaction Status Date / Time No Known Allergies Allergy Verified 10/27/23 13:03 Surgical History History of cataract surgery History of cholecystectomy History of hysterectomy Social History Smoking Status: Current every day smoker tobacco type: cigarettes alcohol intake: current alcohol intake frequency: a few times a week ROS <Modesta Alvarez RN - Last Filed: 10/27/23 15:17> ROS ED Constitutional Constitutional ED: Denies chills, fever(s) or sweats Eyes Eyes: Reports blurry vision bilateral and change in vision; Denies diplopia ENT ENT ED: Denies ear pain, rhinorrhea or sore throat Cardiovascular Cardiovascular: Denies chest pain, palpitations or racing heartbeat Respiratory/Chest Respiratory/Chest: Denies cough, dyspnea or dyspnea on exertion Gastrointestinal Gastrointestinal: Denies abdominal pain, diarrhea, nausea or vomiting Genitourinary Genitourinary ED: Denies dysuria, hematuria or urinary frequency Musculoskeletal Musculoskeletal: Denies arthralgias, back pain or myalgias Neurologic Neurologic: Reports other Details: fuzziness in my head ; Denies headache(s), paresthesias or weakness Hematologic/Lymphatic Hematologic/Lymphatic: Reports systems reviewed and no addt'l complaints, except as documented EXAM <Modesta Alvarez RN - Last Filed: 10/27/23 15:17> Physical Exam Narrative Exam Narrative: Patient is awake, alert, talkative, good historian. Const Vital Signs: 10/27/23 12:53 10/27/23 13:01 10/27/23 15:00 Temperature 98.6 F 98.2 F Temperature Source Temporal Oral Pulse Rate 99 81 Respiratory Rate 20 H 16 Respiratory Effort Normal Respiratory Pattern Normal Blood Pressure 207/88 H 138/76 H Blood Pressure Mean 127 96 Pulse Ox 97 97 Oxygen Delivery Method Room Air Room Air Positive well nourished and well developed General Appearance ED: well developed and NAD HEENT Reports moist mucous membranes Eyes PERRL and EOMs intact bilaterally Chest Wall inspection of chest normal and palpation of chest normal Resp normal respiratory effort and clear to auscultation bilaterally Auscultation: wheezes expiratory wheezes and throughout; Negative for rales or rhonchi Cardio regular rate, regular rhythm, S1 normal heart sound and S2 normal heart sound GI normal to inspection, nondistended, normoactive bowel sounds and non-tender Auscultation: normoactive bowel sounds Palpation: soft Extremity Extremity Narrative: Mild bilateral lower extremity edema General Extremety ED: Yes edema General Extremity: edema Neuro oriented x3 Sensorium / Orientation: alert Motor Exam: strength 5/5 throughout Psych mental status grossly normal Skin no rashes or lesions noted, no wounds and skin turgor normal <Dr. Clare Bateman MD - Last Filed: 10/27/23 15:22> Physical Exam Const Vital Signs: 10/27/23 12:53 10/27/23 13:01 10/27/23 15:00 Temperature 98.6 F 98.2 F Temperature Source Temporal Oral Pulse Rate 99 81 Respiratory Rate 20 H 16 Respiratory Effort Normal Respiratory Pattern Normal Blood Pressure 207/88 H 138/76 H Blood Pressure Mean 127 96 Pulse Ox 97 97 Oxygen Delivery Method Room Air Room Air MDM <Modesta Alvarez RN - Last Filed: 10/27/23 15:17> MDM MDM Narrative Medical decision making narrative: Discussed with patient one of the side effects of steroids is hyperglycemia. Patient given 1 L normal saline after bedside glucose obtained which was 366. History & Record Review Discussion w/independent historian: Patient Lab Data Attestation: I reviewed the patient's lab results. Labs: Laboratory Results - last 24 hr 10/27/23 10/27/23 13:00 14:49 POC Glucose 366 H 279 H Management Discussion w/another healthcare provider: Other (Dr. Bateman, ED provider) Treatment and Re-Evaluation :: Patient received 1 L normal saline bolus. Repeat bedside blood glucose was 279. Upon reevaluation, patient reports symptoms have improved but are not completely resolved. Patient reports she did receive a return call from her primary care provider Dr. Dubose. He prescribed glipizide for her to take while she is taking prednisone and until her blood sugars return to her baseline. Patient reports feeling well enough to be discharged home. She is agreeable to take glipizide and will continue to monitor her blood sugars. <Dr. Clare Bateman MD - Last Filed: 10/27/23 15:22> [facility] Lab Data Labs: Laboratory Results - last 24 hr 10/27/23 10/27/23 13:00 14:49 POC Glucose 366 H 279 H Treatment and Re-Evaluation :: Patient received 1 L normal saline bolus. Repeat bedside blood glucose was 279. Upon reevaluation, patient reports symptoms have improved but are not completely resolved. Patient reports she did receive a return call from her primary care provider Dr. Dubose. He prescribed glipizide for her to take while she is taking prednisone and until her blood sugars return to her baseline. Patient reports feeling well enough to be discharged home. She is agreeable to take glipizide and will continue to monitor her blood sugars. Patient seen and evaluated with SATHYA student. I personally interviewed and examined the patient. I was involved in all aspects of patient's orders, interpretation of results, and treatment. Patient presents due to concern for high blood sugar. Patient was seen in the emergency room early this morning with an asthma exacerbation. She did receive Solu-Medrol and was given a prescription for prednisone for the next 5 days. She states today she felt slightly dizzy and off and when she checked her blood sugar it was in the mid to high 300s. Patient sitting upright in bed no acute distress. Head and neck examination unremarkable. Heart is regular rate and rhythm. Lung sounds are clear. Abdomen soft and nontender. Initial BGT here is 366. Patient given a liter of IV fluids and repeat blood sugar is 279. We did discuss that the steroids will make her blood sugars elevate. While she was here getting her IV fluids her PCP called and will send a prescription for glipizide for her to take while she is on steroids and until her blood sugars return to normal once stopping them. She is comfortable with this plan. Return instructions given. Discharge Plan Triage Chief Complaint: Hyperglycemia ED Provider: Clare Bateman Dx/Rx/DC Orders Clinical Impression: Acute hyperglycemia, History of asthma, History of recent steroid use, History of diabetes mellitus Instructions: ED Diabetic Hyperglycemia Prescriptions: No Action atorvastatin 20 mg tablet 40 mg PO DAILY Patient Comments: TAKE 1 TABLET BY MOUTH EVERY DAY diltiazem HCl 240 mg capsule,extended release 24hr 240 mg PO DAILY Patient Comments: TAKE 1 CAPSULE BY MOUTH EVERY DAY albuterol sulfate 90 mcg/actuation HFA aerosol inhaler 1 puff INHALATION Q6H PRN PRN (Reason: Wheezing) Patient Comments: INHALE ONE (1) PUFF BY MOUTH EVERY 6 HOURS NEEDED FOR WHEEZING Trulicity 1.5 mg/0.5 mL pen injector 3 mg SUBCUT QWEEK Patient Comments: INJECT 0.5 ML SUBCUTANEOUSLY ONCE WEEKLY. ROTATE INJECTION SITES. TO REPLACE THE 0.75 MG DOSE. flecainide 100 mg tablet 100 mg PO BID Patient Comments: TAKE 1 TABLET BY MOUTH EVERY 12 HOURS calcium carbonate-vitamin D3 500 mg-10 mcg (400 unit) tablet 1 tab PO hydrocodone-acetaminophen 5-325 mg tablet 1 tab PO Q6H PRN PRN (Reason: Pain) 3 Days Qty: 12 0RF prednisone 20 mg tablet 20 mg PO DAILY 5 Days Qty: 5 0RF Primary Care Provider: Demarcus Vasques Referrals: Demarcus Vasques DO [Primary Care Provider] - Activity Restrictions/Additional Instructions: Take glipizide as prescribed by Dr. Dubose while taking prednisone and after until your blood sugar levels return to your baseline. Continue to monitor your blood sugars at home. Keep a log of your blood sugars. Follow-up with Dr. Dubose in 1 week as needed. Return to ED for worsening or concerning symptoms. Disposition Disposition: Home, Self Care
[2023-10-27 15:00] VITALS: BP 138/76; PULSE 81; RESP 16; TEMP 36.8; O2SAT 97
[2023-10-27 15:06] LABS: Bedside Glucose 279 mg/dL (74-106)
[2023-10-27 15:22] VITALS: BP 137/69; PULSE 72; RESP 15; TEMP 36.7; O2SAT 96
== END 2023-10-27 15:24 | disposition home or self-care (01) ==
PROVIDERS: Emergency Provider Emergency Medicine; PCP Preventive Medicine Occupational Medicine; Visit Provider Emergency Medicine
DX: E11.65 Type 2 diabetes mellitus with hyperglycemia (principal); I48.91 Unspecified atrial fibrillation; I10 Essential (primary) hypertension; Z79.899 Other long term (current) drug therapy; Z79.85 Long-term (current) use of injectable non-insulin antidiabetic drugs; Z90.49 Acquired absence of other specified parts of digestive tract; Z90.710 Acquired absence of both cervix and uterus; F17.210 Nicotine dependence, cigarettes, uncomplicated; J45.909 Unspecified asthma, uncomplicated
CPT/HCPCS: 82962; 99283; J7030; A4216

== ENCOUNTER 2025-01-10 09:55 | Emergency (ER) | payer MEDICARE, MEDICAID, SELFPAY ==
[2025-01-10 09:56] VITALS: BP 181/71; PULSE 83; RESP 14; TEMP 35.6; O2SAT 99; BMI 44.9
[2025-01-10] MEDS: Ketorolac 30 MG/ML Syringe IV (10:24)
[2025-01-10 10:36] LABS: Hematocrit 46.9 % (37-47); Hemoglobin 15.7 g/dL (12.0-15.0); Immature Granulocytes Count 0.110 X10^3/uL (0.0-0.0); Mean Corp Hgb Conc 33.5 g/dL (32-36); Mean Corpuscular Volume 86.1 fL (81-99); Mean Platelet Vol. 10.8 fl (6.2-12.0); NRBC Flagged by Analyzer 0 % (0-5); Platelet Count 302 K/mm3 (150-450); RBC Distribution Width CV 14.1 % (11.6-14.6); RBC Distribution Width SD 43.8 fl (35.1-43.9); Red Blood Count 5.45 M/mm3 (4.2-5.4); White Blood Count 17.5 K/mm3 (4.4-11.0)
[2025-01-10 11:22] LABS: Anion Gap 11 (5-15); BUN 19 mg/dL (4-19); BUN/Creat Ratio 21.1 RATIO (10-20); Calcium,Total 10.1 mg/dL (7.6-11.0); Carbon Dioxide 25.2 mmol/L (21.0-32.0); Chloride 103 mmol/L (98-108); Estimated Creatinine Clearance 85.23 ml/min (50-250); Glucose 164 mg/dL (70-99); Potassium 4.2 mmol/L (3.3-5.1)
[2025-01-10 11:56] VITALS: BP 134/68; PULSE 63; RESP 16; O2SAT 97
[2025-01-10 12:46] VITALS: BP 147/72; PULSE 79; RESP 16; TEMP 36.7; O2SAT 100
== END 2025-01-10 12:48 | disposition home or self-care (01) ==
PROVIDERS: Emergency Provider Emergency Medicine; PCP Preventive Medicine Occupational Medicine; Visit Provider Emergency Medicine
DX: K57.32 Diverticulitis of large intestine without perforation or abscess without bleeding (principal); E11.9 Type 2 diabetes mellitus without complications; I10 Essential (primary) hypertension; J45.909 Unspecified asthma, uncomplicated; F17.210 Nicotine dependence, cigarettes, uncomplicated; E66.9 Obesity, unspecified; D72.829 Elevated white blood cell count, unspecified
CPT/HCPCS: 99283; 74177; 80048; 85025; Q9967; A4216; J2405

== ENCOUNTER 2025-01-10 17:40 | Inpatient (IN) | payer MEDICARE, MEDICAID, SELFPAY ==
[2025-01-10 17:42] VITALS: BP 203/117; PULSE 93; RESP 18; TEMP 36.9; O2SAT 96; BMI 46.6
[2025-01-10 17:44] VITALS: BP 203/117; PULSE 93; RESP 18; TEMP 36.9; O2SAT 96
[2025-01-10] MEDS: 0.9% Normal Saline (1000mL) 1,000 ML 999 ML IV (19:28)
[2025-01-10 19:40] VITALS: BP 185/88; PULSE 82; RESP 22
[2025-01-10] MEDS: fentaNYL 100 MCG/2 ML Ampul 50 MCG IV (21:12)
[2025-01-10] MEDS: Piperacil/Tazobactam 3.375 GM in 0.9% Normal Saline (50mL MB+) 50 ML IV (21:35)
[2025-01-10 21:42] VITALS: BP 107/69; PULSE 81; RESP 16; TEMP 37.2; O2SAT 100
[2025-01-10 22:16] VITALS: RESP 16; BMI 46.4
[2025-01-10 22:38] VITALS: BP 193/81; PULSE 82; RESP 20; TEMP 36.6; O2SAT 93
[2025-01-10 22:58] LABS: Magnesium 2.2 mg/dL (1.5-2.2)
[2025-01-11] MEDS: 0.9% Normal Saline (1000mL) 1,000 ML 100 ML IV ×2 (00:10→11:04)
[2025-01-11] MEDS: Famotidine 200 MG/20 ML MDV 20 MG in 0.9% Normal Saline (Pres. free 8 ML 300 MG IV ×3 (00:11→21:46)
[2025-01-11] MEDS: proMETHazine 25 MG/ML Syringe 12.5 MG IM (00:38)
[2025-01-11] MEDS: 0.9% Saline Lock 10 ML Syringe IV ×2 (00:39→20:35)
[2025-01-11 03:31] LABS: Free T3 2.7 pg/mL (2.18-3.98)
[2025-01-11 06:00] VITALS: BMI 46.5
[2025-01-11 06:02] VITALS: BP 135/59; PULSE 77; RESP 16; TEMP 36.8; O2SAT 92
[2025-01-11 06:07] LABS: Hematocrit 46.2 % (37-47); Hemoglobin 15.0 g/dL (12.0-15.0); Immature Granulocytes Count 0.120 X10^3/uL (0.0-0.0); Mean Corp Hgb Conc 32.5 g/dL (32-36); Mean Corpuscular Volume 88.7 fL (81-99); Mean Platelet Vol. 11.3 fl (6.2-12.0); NRBC Flagged by Analyzer 0 % (0-5); POSITIVE COUNT YES; RBC Distribution Width CV 14.1 % (11.6-14.6); RBC Distribution Width SD 45.4 fl (35.1-43.9); Red Blood Count 5.21 M/mm3 (4.2-5.4); White Blood Count 20.9 K/mm3 (4.4-11.0)
[2025-01-11] MEDS: Piperacil/Tazobactam 3.375 GM in 0.9% Normal Saline (50mL MB+) 50 ML IV ×3 (06:17→21:53)
[2025-01-11 06:30] LABS: AST(SGOT) 319 U/L (<=31); Alanine Aminotransfer ALT/SGPT 420 U/L (<=34); Albumin, Serum 3.4 g/dL (3.5-5.0); Alkaline Phosphatase 102 U/L (35-104); Anion Gap 12 (5-15); BUN 22 mg/dL (4-19); BUN/Creat Ratio 24.3 RATIO (10-20); Calcium,Total 8.7 mg/dL (7.6-11.0); Carbon Dioxide 18.9 mmol/L (21.0-32.0); Chloride 105 mmol/L (98-108); Estimated Creatinine Clearance 85.88 ml/min (50-250); Globulin 2.8 g/dL (2.2-4.2); Glucose 156 mg/dL (70-99); Potassium 4.3 mmol/L (3.3-5.1)
[2025-01-11 06:56] VITALS: O2SAT 93
[2025-01-11 07:30] LABS: Differential Indicated SCAN CRITERIA MET
[2025-01-11 10:54] VITALS: BP 155/70; PULSE 71; RESP 18; TEMP 36.7; O2SAT 96
[2025-01-11 16:26] VITALS: BP 122/56; PULSE 63; RESP 18; TEMP 36.2; O2SAT 98
[2025-01-11 20:30] VITALS: BP 151/53; PULSE 68; RESP 17; TEMP 36.4; O2SAT 97
[2025-01-12 03:03] VITALS: BP 115/48; PULSE 65; RESP 16; TEMP 36.1; O2SAT 96
[2025-01-12 05:55] VITALS: BMI 46.5
[2025-01-12 05:57] VITALS: PULSE 71; O2SAT 94
[2025-01-12] MEDS: Piperacil/Tazobactam 3.375 GM in 0.9% Normal Saline (50mL MB+) 50 ML IV (05:58)
[2025-01-12 07:45] LABS: Hematocrit 38.8 % (37-47); Hemoglobin 13.0 g/dL (12.0-15.0); Immature Granulocytes Count 0.050 X10^3/uL (0.0-0.0); Mean Corp Hgb Conc 33.5 g/dL (32-36); Mean Corpuscular Volume 86.6 fL (81-99); Mean Platelet Vol. 10.9 fl (6.2-12.0); NRBC Flagged by Analyzer 0 % (0-5); Platelet Count 221 K/mm3 (150-450); RBC Distribution Width CV 14.2 % (11.6-14.6); RBC Distribution Width SD 45.1 fl (35.1-43.9); Red Blood Count 4.48 M/mm3 (4.2-5.4); White Blood Count 14.4 K/mm3 (4.4-11.0)
[2025-01-12 08:11] VITALS: BP 138/56; PULSE 68; RESP 16; TEMP 36.8; O2SAT 93
[2025-01-12 09:06] LABS: Magnesium 2.0 mg/dL (1.5-2.2)
[2025-01-12 09:08] LABS: Anion Gap 10 (5-15); BUN 10 mg/dL (4-19); BUN/Creat Ratio 12.4 RATIO (10-20); Calcium,Total 7.9 mg/dL (7.6-11.0); Carbon Dioxide 22.1 mmol/L (21.0-32.0); Chloride 105 mmol/L (98-108); Estimated Creatinine Clearance 98.88 ml/min (50-250); Glucose 121 mg/dL (70-99); Potassium 3.8 mmol/L (3.3-5.1)
[2025-01-12] MEDS: Lactobacillis Acidophilus 1 CAP PO (09:20)
== END 2025-01-12 10:25 | disposition home or self-care (01) | DRG 392 ==
LOC: ED 21:12 → MS3 21:44
PROVIDERS: Pediatrics; Admitting Provider Internal Medicine; Emergency Provider Emergency Medicine; PCP Preventive Medicine Occupational Medicine; Visit Provider Internal Medicine
DX: K57.32 Diverticulitis of large intestine without perforation or abscess without bleeding (principal); Z68.42 Body mass index [BMI] 45.0-49.9, adult; E03.9 Hypothyroidism, unspecified; E11.9 Type 2 diabetes mellitus without complications; J45.20 Mild intermittent asthma, uncomplicated; I10 Essential (primary) hypertension; I48.0 Paroxysmal atrial fibrillation; E78.5 Hyperlipidemia, unspecified; F17.210 Nicotine dependence, cigarettes, uncomplicated; E66.812 Obesity, class 2; Z79.85 Long-term (current) use of injectable non-insulin antidiabetic drugs; Z79.890 Hormone replacement therapy; Z79.899 Other long term (current) drug therapy
CPT/HCPCS: 36415; 74177; 80048; 80053; 82274; 82962; 83036; 83735; 84100; 84439; 84443; 84481; 85025; 93005; 94668; 97161; 99252; 99283; Q9967; A4216; G0463; J2405